=== PATIENT | male | born 1950 | race Caucasian/White ===

== ENCOUNTER 2022-03-04 14:15 | Outpatient (RCR) | payer MEDICARE, OTHER, SELFPAY ==
--- NOTE | 2022-01-25 20:46 | PT.OIE ---
Current Diagnoses Parkinson's disease (01/25/22) Other abnormalities of gait and mobility (01/25/22) History of falling (01/25/22) Visit Care Team Role Provider Type Jean Diaz MD Family Provider Non-Staff Primary Care Provider Specialty: Medical Address: [address], [place], [address] Email: Konstantin Cavanaugh MD Attending Provider Non-Staff Referring Provider Specialty: Neurology Address: [address] , [place], [address] Email: Physical Therapy Initial Evaluation PT-OP-A Visit Information Start: 01/23/22 21:26 Freq: Status: Active Protocol: Document 01/25/22 12:40 AMB (Rec: 01/25/22 12:41 AMB [id number]) Out-Patient Physical Therapy Visit Information Visit Information Visit Type Initial Evaluation Visit Start Time 11:00 Visit Stop Time 12:00 Total Visit Minutes 60 Visit Number 1 PT-OP-B Current Condition Start: 01/23/22 21:26 Freq: Status: Active Protocol: Document 01/25/22 12:40 AMB (Rec: 01/25/22 13:01 AMB [id number]) Current Condition History of Current Condition Onset Date 1 year Current Complaints PD History of Current Condition Steve presents with Parkinson's for at least one year. His PCP noticed facial masking and then started him on levodopa/ carbidopa and it really helped his walking. He walks 3 miles/day with trekking poles but notes the 3rd mile is really bad with shuffling. Before taking medication he would fall when turning his head while walking and continues to be challenged by this but it is much better than it was. 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 Steve feels like exertion makes his PD symptoms worse as far as the tremor and ability to do fine motor activities. 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 Reports 3 falls in the last 2 months, mostly when on his walks. Wants to maintain his walking as it is very helpful for maintaining his blood sugars. Personal Factors Other Personal Factors That May Effect Peripheral neuropathy of Therapy/Recovery bilateral feet and hands, post concussive syndrome, neck pain, Hx pancreatitits, HepC, colon cancer PT-OP-D Balance Start: 01/23/22 21:26 Freq: Status: Active Protocol: Document 01/25/22 12:40 AMB (Rec: 01/25/22 12:54 AMB [id number]) Balance Tests mCTSIB mCTSIB Position 1 30 seconds but close SBA increased ankle sway mCTSIB Position 2 unsafe- CGA to prevent LOB PT-OP-E Functional Tests Start: 01/23/22 21:26 Freq: Status: Active Protocol: Document 01/25/22 12:40 AMB (Rec: 01/25/22 12:54 AMB [id number]) Functional Tests 6 Minute Walk Test Distance 910 Device Used none Comments reduced arm swing on R, flat foot contact bilat 10 Meter Walk Test Distance 11 seconds Device Used none Dynamic Gait Index (DGI) Score 12 DGI Impairment Rating 40 to <60% Impaired (Score 10- 14) Five Times Sit to Stand Test Score 26 Comments mild use of UEs, standard height chair, poor eccentric control PT-OP-G Mobility & Gait Start: 01/23/22 21:26 Freq: Status: Active Protocol: Document 01/25/22 12:40 AMB (Rec: 01/25/22 12:54 AMB [id number]) OP Gait Assessment Comments Gait Comments Flat foot strike with reduced arm swing bilaterally worst on the right. Falls forward with looking down. Able to turn without significant festination but does have smaller steps with turns. PT-OP-H Neuro Start: 01/23/22 21:26 Freq: Status: Active Protocol: Document 01/25/22 12:40 AMB (Rec: 01/25/22 12:54 AMB [id number]) Sensation Evaluation Comments Summary Comments neuropathy for years, numbness in bilateral feet up to ankles, numbness in hands Coordination Evaluation Lower Extremity Tests Left Foot Tapping Test Moderate Impairment Comments Coordination Comments taps feet well at slow speed, unable to alternate at higher speeds PT-OP-T Assessment and Plan Start: 01/23/22 21:26 Freq: Status: Active Protocol: Document 01/25/22 12:40 AMB (Rec: 01/25/22 13:01 AMB [id number]) Physical Therapy Assessment Rehab Potential Rehabilitation Potential Good Evaluation Complexity Number of Personal Factors/Comorbidities 1-2 Number of Body Systems Impaired 4 or More Clinical Presentation at Evaluation Evolving Impairments Impairments Activity Tolerance,Balance, Coordination,Functional Activities,Gait,Pain,Posture, Sensation,Transfers Goals Three Impairment Transfers Short Term Goal (STG) Steve will improve his 5x sit to stand to less than 20 seconds . STG Duration 2 weeks Two Impairment Balance Short Term Goal (STG) Steve will show improved dynamic balance by increasing his DGI score to at least 19/24. STG Duration 2 weeks Half-Way Goal (LTG) Steve will show improved dynamic balance by walking through a cross walk while turning his head to look for traffic without loss of balance. LTG Duration 4 weeks One Impairment Gait Short Term Goal (STG) Steve will ambulate with good step length and arm swing for 1 minute over smooth terrain. STG Duration 2 weeks Charge Master Coordinator Goal (LTG) Steve will show improved gait by improving his 6 minute walk test to at least 1,200 feet. LTG Duration 4 weeks Assessment Summary Assessment Steve attends physical therapy with fine motor and gait impairments and history of falling consistent with Parkinson's Disease. His medical status is complicated by a history of neuropathy and post concussive syndrome with dizziness. He presents with DGI score in the fall risk category and 6MWT of about half the distance for age/ gender norm. He had impaired static balance and coordination, and his gait does fatigue so that he has reduced arm swing and more of a flat foot contact as he walks more. He will benefit from physical therapy with LSVT BIG to improve his gait, transfers and fine motor activities and reduce his overall fall risk. Physical Therapy Plan Frequency and Duration Frequency of Treatment 4x/Week Duration of Treatment 5 weeks Plan of Care Start Date 01/25/22 Plan of Care End Date 03/01/22 Therapeutic Interventions Therapeutic Interventions Balance Training,Coordination Training,Gait Training,Home Exercise Program,Neuromuscular Re-education,Self-Care/Home Management,Therapeutic Activities,Therapeutic Exercises Next Visit Focus/Plan Next Note Type Treatment Note Next Visit Plan Begin standard LSVT BIG, may need to adapt for balance deficits especially with head turns. Give pt functional activities chart.
--- NOTE | 2022-01-25 20:48 | PT.OPPOC ---
Physical, Occupational & Speech Therapy At [facility] Current Diagnoses Parkinson's disease (01/25/22) Other abnormalities of gait and mobility (01/25/22) History of falling (01/25/22) Visit Care Team Role Provider Type Jean Diaz MD Family Provider Non-Staff Primary Care Provider Specialty: Medical Address: [address] [place], [address] Email: Konstantin Cavanaugh MD Attending Provider Non-Staff Referring Provider Specialty: Neurology Address: [address] [facility], [place], [address] Email: Plan Of Care PT-OP-T Assessment and Plan Start: 01/23/22 21:26 Freq: Status: Active Protocol: Document 01/25/22 12:40 AMB (Rec: 01/25/22 13:01 AMB [id number]) Physical Therapy Assessment Rehab Potential Rehabilitation Potential Good Evaluation Complexity Number of Personal Factors/Comorbidities 1-2 Number of Body Systems Impaired 4 or More Clinical Presentation at Evaluation Evolving Impairments Impairments Activity Tolerance,Balance, Coordination,Functional Activities,Gait,Pain,Posture, Sensation,Transfers Goals Three Impairment Transfers Short Term Goal (STG) Steve will improve his 5x sit to stand to less than 20 seconds . STG Duration 2 weeks Two Impairment Balance Short Term Goal (STG) Steve will show improved dynamic balance by increasing his DGI score to at least 19/24. STG Duration 2 weeks Stock Tracer Goal (LTG) Steve will show improved dynamic balance by walking through a cross walk while turning his head to look for traffic without loss of balance. LTG Duration 4 weeks One Impairment Gait Short Term Goal (STG) Steve will ambulate with good step length and arm swing for 1 minute over smooth terrain. STG Duration 2 weeks Stock Tracer Goal (LTG) Steve will show improved gait by improving his 6 minute walk test to at least 1,200 feet. LTG Duration 4 weeks Assessment Summary Assessment Steve attends physical therapy with fine motor and gait impairments and history of falling consistent with Parkinson's Disease. His medical status is complicated by a history of neuropathy and post concussive syndrome with dizziness. He presents with DGI score in the fall risk category and 6MWT of about half the distance for age/ gender norm. He had impaired static balance and coordination, and his gait does fatigue so that he has reduced arm swing and more of a flat foot contact as he walks more. He will benefit from physical therapy with LSVT BIG to improve his gait, transfers and fine motor activities and reduce his overall fall risk. Physical Therapy Plan Frequency and Duration Frequency of Treatment 4x/Week Duration of Treatment 5 weeks Plan of Care Start Date 01/25/22 Plan of Care End Date 03/01/22 Therapeutic Interventions Therapeutic Interventions Balance Training,Coordination Training,Gait Training,Home Exercise Program,Neuromuscular Re-education,Self-Care/Home Management,Therapeutic Activities,Therapeutic Exercises Next Visit Focus/Plan Next Note Type Treatment Note Next Visit Plan Begin standard LSVT BIG, may need to adapt for balance deficits especially with head turns. Give pt functional activities chart. Plan of Care Dates Plan of Care Start Date 01/25/22 Plan of Care End Date 03/01/22 Electronically Signed by: Mohini Baptiste, PT 01/25/222047 If you are in agreement with this Plan of Care, please return a signed and dated copy. I have reviewed this Plan of Care and certify that the skilled therapy services above are required to meet the patient?s needs. Physician Signature Date Printed Name and Credentials Clinical Instructor Signature Printed Name and Credentials
--- NOTE | 2022-01-26 17:23 | PT.OTN ---
Current Diagnoses Parkinson's disease (01/26/22) Other abnormalities of gait and mobility (01/26/22) History of falling (01/26/22) Physical Therapy Treatment Note PT-OP-A Visit Information Start: 01/23/22 21:26 Freq: Status: Active Protocol: Document 01/26/22 13:53 AW (Rec: 01/26/22 17:23 AW [id number]) Out-Patient Physical Therapy Visit Information Visit Information Visit Type Treatment Note Visit Start Time 14:15 Visit Stop Time 15:15 Total Visit Minutes 60 Visit Number 2 PT-OP-B Current Condition Start: 01/23/22 21:26 Freq: Status: Active Protocol: Document 01/25/22 12:40 AMB (Rec: 01/25/22 13:01 AMB [id number]) Current Condition History of Current Condition Onset Date 1 year Current Complaints PD History of Current Condition Steve presents with Parkinson's for at least one year. His PCP noticed facial masking and then started him on levodopa/ carbidopa and it really helped his walking. He walks 3 miles/day with trekking poles but notes the 3rd mile is really bad with shuffling. Before taking medication he would fall when turning his head while walking and continues to be challenged by this but it is much better than it was. 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 Steve feels like exertion makes his PD symptoms worse as far as the tremor and ability to do fine motor activities. 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 Reports 3 falls in the last 2 months, mostly when on his walks. Wants to maintain his walking as it is very helpful for maintaining his blood sugars. Personal Factors Other Personal Factors That May Effect Peripheral neuropathy of Therapy/Recovery bilateral feet and hands, post concussive syndrome, neck pain, Hx pancreatitits, HepC, colon cancer PT-OP-C Subjective Start: 01/23/22 21:26 Freq: Status: Active Protocol: Document 01/26/22 13:53 AW (Rec: 01/26/22 17:23 AW [id number]) OP-PT Subjective Patient Comments Patient Comments Steve arrived today after completing a 3-4 mile walk. PT-OP-D Balance Start: 01/23/22 21:26 Freq: Status: Active Protocol: Document 01/25/22 12:40 AMB (Rec: 01/25/22 12:54 AMB [id number]) Balance Tests mCTSIB mCTSIB Position 1 30 seconds but close SBA increased ankle sway mCTSIB Position 2 unsafe- CGA to prevent LOB PT-OP-E Functional Tests Start: 01/23/22 21:26 Freq: Status: Active Protocol: Document 01/25/22 12:40 AMB (Rec: 01/25/22 12:54 AMB [id number]) Functional Tests 6 Minute Walk Test Distance 910 Device Used none Comments reduced arm swing on R, flat foot contact bilat 10 Meter Walk Test Distance 11 seconds Device Used none Dynamic Gait Index (DGI) Score 12 DGI Impairment Rating 40 to <60% Impaired (Score 10- 14) Five Times Sit to Stand Test Score 26 Comments mild use of UEs, standard height chair, poor eccentric control PT-OP-G Mobility & Gait Start: 01/23/22 21:26 Freq: Status: Active Protocol: Document 01/25/22 12:40 AMB (Rec: 01/25/22 12:54 AMB [id number]) OP Gait Assessment Comments Gait Comments Flat foot strike with reduced arm swing bilaterally worst on the right. Falls forward with looking down. Able to turn without significant festination but does have smaller steps with turns. PT-OP-H Neuro Start: 01/23/22 21:26 Freq: Status: Active Protocol: Document 01/25/22 12:40 AMB (Rec: 01/25/22 12:54 AMB [id number]) Sensation Evaluation Comments Summary Comments neuropathy for years, numbness in bilateral feet up to ankles, numbness in hands Coordination Evaluation Lower Extremity Tests Left Foot Tapping Test Moderate Impairment Comments Coordination Comments taps feet well at slow speed, unable to alternate at higher speeds PT-OP-Q Treatments Start: 01/23/22 21:26 Freq: Status: Active Protocol: Document 01/26/22 13:53 AW (Rec: 01/26/22 17:23 AW [id number]) Neuro Re-Education Treatment Other Activities sit to stand Details sit to stand Reps/Duration 2x5 reps Comments Cues for anterior weight shift with descent. sideways rock and reach Details sideways rock and reach Reps/Duration x10 Comments Modified with rail support forward rock and reach Details forward rock and reach Reps/Duration x10 Comments Modified with rail support. Cues for posture, decreased forward lean. backward step Details backward step Reps/Duration x10 Comments Modified with rail support. Improved performance after doing rock and reach exercises to emphasize weight shift. sideways step Details sideways step Reps/Duration x8 Comments with rail nearby for prn support but rail was not contacted forward step Details forward step Reps/Duration x8 Comments with rail nearby for prn support but rail was not contacted seated side to side Details seated side to side Reps/Duration x10 floor to ceiling Details floor to ceiling Reps/Duration x10 Self-Care/Home Management Treatment Education Other Education Began identifying functional tasks for treatment. Pt would like to work on handwriting, mousing, and using a knife for eating. He may also be interested in practicing tapping accuracy with his phone. PT-OP-T Assessment and Plan Start: 01/23/22 21:26 Freq: Status: Active Protocol: Document 01/26/22 13:53 AW (Rec: 01/26/22 17:23 AW [id number]) Physical Therapy Assessment Goals Three Impairment Transfers Short Term Goal (STG) Steve will improve his 5x sit to stand to less than 20 seconds . STG Duration 2 weeks Two Impairment Balance Short Term Goal (STG) Steve will show improved dynamic balance by increasing his DGI score to at least 19/24. STG Duration 2 weeks Halfway Goal (LTG) Steve will show improved dynamic balance by walking through a cross walk while turning his head to look for traffic without loss of balance. LTG Duration 4 weeks One Impairment Gait Short Term Goal (STG) Steve will ambulate with good step length and arm swing for 1 minute over smooth terrain. STG Duration 2 weeks Halfway Goal (LTG) Steve will show improved gait by improving his 6 minute walk test to at least 1,200 feet. LTG Duration 4 weeks Assessment Summary Assessment Treatment today focused on introducing the daily maximal exercises with education and emphasis on amplitude. Steve needed max cues and lots of repetition for weight shifting during exercise. Modified exercises with rail support were most appropriate for Steve due to balance concerns. Physical Therapy Plan Frequency and Duration Frequency of Treatment 4x/Week Duration of Treatment 5 weeks Plan of Care Start Date 01/25/22 Plan of Care End Date 03/01/22 Therapeutic Interventions Therapeutic Interventions Balance Training,Coordination Training,Gait Training,Home Exercise Program,Neuromuscular Re-education,Self-Care/Home Management,Therapeutic Activities,Therapeutic Exercises Next Visit Focus/Plan Next Note Type Treatment Note Next Visit Plan Review daily exercises and functional tasks. Begin gait training
--- NOTE | 2022-01-27 12:20 | PT.OTN ---
Current Diagnoses Parkinson's disease (01/27/22) Other abnormalities of gait and mobility (01/27/22) History of falling (01/27/22) Physical Therapy Treatment Note PT-OP-A Visit Information Start: 01/23/22 21:26 Freq: Status: Active Protocol: Document 01/27/22 11:00 AMB (Rec: 01/27/22 11:55 AMB [id number]) Out-Patient Physical Therapy Visit Information Visit Information Visit Type Treatment Note Visit Start Time 11:00 Visit Stop Time 12:00 Total Visit Minutes 60 Visit Number 3 PT-OP-B Current Condition Start: 01/23/22 21:26 Freq: Status: Active Protocol: Document 01/25/22 12:40 AMB (Rec: 01/25/22 13:01 AMB [id number]) Current Condition History of Current Condition Onset Date 1 year Current Complaints PD History of Current Condition Steve presents with Parkinson's for at least one year. His PCP noticed facial masking and then started him on levodopa/ carbidopa and it really helped his walking. He walks 3 miles/day with trekking poles but notes the 3rd mile is really bad with shuffling. Before taking medication he would fall when turning his head while walking and continues to be challenged by this but it is much better than it was. 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 Steve feels like exertion makes his PD symptoms worse as far as the tremor and ability to do fine motor activities. 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 Reports 3 falls in the last 2 months, mostly when on his walks. Wants to maintain his walking as it is very helpful for maintaining his blood sugars. Personal Factors Other Personal Factors That May Effect Peripheral neuropathy of Therapy/Recovery bilateral feet and hands, post concussive syndrome, neck pain, Hx pancreatitits, HepC, colon cancer PT-OP-C Subjective Start: 01/23/22 21:26 Freq: Status: Active Protocol: Document 01/27/22 11:00 AMB (Rec: 01/27/22 12:05 AMB [id number]) OP-PT Subjective Patient Comments Patient Comments Pt did his exercises last night and they went ok, having difficulty knowing which leg to put weight on. PT-OP-D Balance Start: 01/23/22 21:26 Freq: Status: Active Protocol: Document 01/25/22 12:40 AMB (Rec: 01/25/22 12:54 AMB [id number]) Balance Tests mCTSIB mCTSIB Position 1 30 seconds but close SBA increased ankle sway mCTSIB Position 2 unsafe- CGA to prevent LOB PT-OP-E Functional Tests Start: 01/23/22 21:26 Freq: Status: Active Protocol: Document 01/25/22 12:40 AMB (Rec: 01/25/22 12:54 AMB [id number]) Functional Tests 6 Minute Walk Test Distance 910 Device Used none Comments reduced arm swing on R, flat foot contact bilat 10 Meter Walk Test Distance 11 seconds Device Used none Dynamic Gait Index (DGI) Score 12 DGI Impairment Rating 40 to <60% Impaired (Score 10- 14) Five Times Sit to Stand Test Score 26 Comments mild use of UEs, standard height chair, poor eccentric control PT-OP-G Mobility & Gait Start: 01/23/22 21:26 Freq: Status: Active Protocol: Document 01/25/22 12:40 AMB (Rec: 01/25/22 12:54 AMB [id number]) OP Gait Assessment Comments Gait Comments Flat foot strike with reduced arm swing bilaterally worst on the right. Falls forward with looking down. Able to turn without significant festination but does have smaller steps with turns. PT-OP-H Neuro Start: 01/23/22 21:26 Freq: Status: Active Protocol: Document 01/25/22 12:40 AMB (Rec: 01/25/22 12:54 AMB [id number]) Sensation Evaluation Comments Summary Comments neuropathy for years, numbness in bilateral feet up to ankles, numbness in hands Coordination Evaluation Lower Extremity Tests Left Foot Tapping Test Moderate Impairment Comments Coordination Comments taps feet well at slow speed, unable to alternate at higher speeds PT-OP-Q Treatments Start: 01/23/22 21:26 Freq: Status: Active Protocol: Document 01/27/22 11:00 AMB (Rec: 01/27/22 11:55 AMB [id number]) Gait Training Gait Activity outdoor Device Used none Level of Assistance SBA Surface pavement, curbs, slight hills Distance/Duration 400' Treatment Focus arm swing/step length Neuro Re-Education Treatment Other Activities sit to stand Details sit to stand Reps/Duration 2x5 reps Comments Cues for anterior weight shift with descent. sideways rock and reach Details sideways rock and reach Reps/Duration x10 Comments Railing available, but not touched forward rock and reach Details forward rock and reach Reps/Duration x10 Comments Modified with rail support. Cues for posture, decreased forward lean. backward step Details backward step Reps/Duration x10 Comments Modified with rail support. sideways step Details sideways step Reps/Duration x8 Comments with rail nearby for prn support but rail was not contacted forward step Details forward step Reps/Duration x8 Comments with rail nearby for prn support but rail was not contacted seated side to side Details seated side to side Reps/Duration x10 floor to ceiling Details floor to ceiling Reps/Duration x10 PT-OP-T Assessment and Plan Start: 01/23/22 21:26 Freq: Status: Active Protocol: Document 01/27/22 11:00 AMB (Rec: 01/27/22 11:55 AMB [id number]) Physical Therapy Assessment Goals Three Impairment Transfers Short Term Goal (STG) Steve will improve his 5x sit to stand to less than 20 seconds . STG Duration 2 weeks Two Impairment Balance Short Term Goal (STG) Steve will show improved dynamic balance by increasing his DGI score to at least 19/24. STG Duration 2 weeks Half-Way Goal (LTG) Steve will show improved dynamic balance by walking through a cross walk while turning his head to look for traffic without loss of balance. LTG Duration 4 weeks One Impairment Gait Short Term Goal (STG) Steve will ambulate with good step length and arm swing for 1 minute over smooth terrain. STG Duration 2 weeks Half-Way Goal (LTG) Steve will show improved gait by improving his 6 minute walk test to at least 1,200 feet. LTG Duration 4 weeks Assessment Summary Assessment Steve is needing UE support for backward stepping and fwd rock and reach, did better today as he hadn't just been on a long walk and neuropathy burning was more in his feet than up into his calves. Physical Therapy Plan Frequency and Duration Frequency of Treatment 4x/Week Duration of Treatment 5 weeks Plan of Care Start Date 01/25/22 Plan of Care End Date 03/01/22 Therapeutic Interventions Therapeutic Interventions Balance Training,Coordination Training,Gait Training,Home Exercise Program,Neuromuscular Re-education,Self-Care/Home Management,Therapeutic Activities,Therapeutic Exercises Next Visit Focus/Plan Next Note Type Treatment Note Next Visit Plan Review daily exercises and functional tasks. Begin gait training
--- NOTE | 2022-01-28 15:25 | PT.OTN ---
Current Diagnoses Parkinson's disease (01/28/22) Other abnormalities of gait and mobility (01/28/22) History of falling (01/28/22) Physical Therapy Treatment Note PT-OP-A Visit Information Start: 01/23/22 21:26 Freq: Status: Active Protocol: Document 01/28/22 13:58 AW (Rec: 01/28/22 15:17 AW [id number]) Out-Patient Physical Therapy Visit Information Visit Information Visit Type Treatment Note Visit Start Time 14:15 Visit Stop Time 15:15 Total Visit Minutes 60 Visit Number 4 PT-OP-B Current Condition Start: 01/23/22 21:26 Freq: Status: Active Protocol: Document 01/25/22 12:40 AMB (Rec: 01/25/22 13:01 AMB [id number]) Current Condition History of Current Condition Onset Date 1 year Current Complaints PD History of Current Condition Steve presents with Parkinson's for at least one year. His PCP noticed facial masking and then started him on levodopa/ carbidopa and it really helped his walking. He walks 3 miles/day with trekking poles but notes the 3rd mile is really bad with shuffling. Before taking medication he would fall when turning his head while walking and continues to be challenged by this but it is much better than it was. 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 Steve feels like exertion makes his PD symptoms worse as far as the tremor and ability to do fine motor activities. 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 Reports 3 falls in the last 2 months, mostly when on his walks. Wants to maintain his walking as it is very helpful for maintaining his blood sugars. Personal Factors Other Personal Factors That May Effect Peripheral neuropathy of Therapy/Recovery bilateral feet and hands, post concussive syndrome, neck pain, Hx pancreatitits, HepC, colon cancer PT-OP-C Subjective Start: 01/23/22 21:26 Freq: Status: Active Protocol: Document 01/28/22 13:58 AW (Rec: 01/28/22 15:17 AW [id number]) OP-PT Subjective Patient Comments Patient Comments Steve tried some of his standing exercises without UE support at home and agreed that he has better movement with support. He did his 4-mile walk before PT today. PT-OP-D Balance Start: 01/23/22 21:26 Freq: Status: Active Protocol: Document 01/25/22 12:40 AMB (Rec: 01/25/22 12:54 AMB [id number]) Balance Tests mCTSIB mCTSIB Position 1 30 seconds but close SBA increased ankle sway mCTSIB Position 2 unsafe- CGA to prevent LOB PT-OP-E Functional Tests Start: 01/23/22 21:26 Freq: Status: Active Protocol: Document 01/25/22 12:40 AMB (Rec: 01/25/22 12:54 AMB [id number]) Functional Tests 6 Minute Walk Test Distance 910 Device Used none Comments reduced arm swing on R, flat foot contact bilat 10 Meter Walk Test Distance 11 seconds Device Used none Dynamic Gait Index (DGI) Score 12 DGI Impairment Rating 40 to <60% Impaired (Score 10- 14) Five Times Sit to Stand Test Score 26 Comments mild use of UEs, standard height chair, poor eccentric control PT-OP-G Mobility & Gait Start: 01/23/22 21:26 Freq: Status: Active Protocol: Document 01/25/22 12:40 AMB (Rec: 01/25/22 12:54 AMB [id number]) OP Gait Assessment Comments Gait Comments Flat foot strike with reduced arm swing bilaterally worst on the right. Falls forward with looking down. Able to turn without significant festination but does have smaller steps with turns. PT-OP-H Neuro Start: 01/23/22 21:26 Freq: Status: Active Protocol: Document 01/25/22 12:40 AMB (Rec: 01/25/22 12:54 AMB [id number]) Sensation Evaluation Comments Summary Comments neuropathy for years, numbness in bilateral feet up to ankles, numbness in hands Coordination Evaluation Lower Extremity Tests Left Foot Tapping Test Moderate Impairment Comments Coordination Comments taps feet well at slow speed, unable to alternate at higher speeds PT-OP-Q Treatments Start: 01/23/22 21:26 Freq: Status: Active Protocol: Document 01/28/22 13:58 AW (Rec: 01/28/22 15:17 AW [id number]) Therapeutic Activity Therapeutic Activity mousing Name mousing Comments Briefly assessed. Pt states main problem is erratic finger movement which creates unintended clicks. writing Name handwriting Comments Pt wrote his name on large- ruled paper with mild evidence of micrographia. He responded well to cues for hand flicks and big insurance account manager on the pen. Gait Training Gait Activity outdoor Device Used none, single trekking pole Level of Assistance SBA Surface pavement, curbs, slight grassy hills Distance/Duration 15 min Treatment Focus arm swing/step length Comments 1/2 of time without AD, remaining time with trek pole. Neuro Re-Education Treatment Other Activities sit to stand Details sit to stand Reps/Duration 2x5 reps Comments 19 height black tx table with improved eccentric control today sideways rock and reach Details sideways rock and reach Reps/Duration x10 Comments Railing available, but not touched forward rock and reach Details forward rock and reach Reps/Duration x10 Comments Modified with rail support. Cues for posture, decreased forward lean. backward step Details backward step Reps/Duration x10 Comments Modified with rail support. sideways step Details sideways step Reps/Duration x8 Comments with rail nearby for prn support but rail was not contacted forward step Details forward step Reps/Duration x8 Comments with rail nearby for prn support but rail was not contacted seated side to side Details seated side to side Reps/Duration x10 floor to ceiling Details floor to ceiling Reps/Duration x10 PT-OP-T Assessment and Plan Start: 01/23/22 21:26 Freq: Status: Active Protocol: Document 01/28/22 13:58 AW (Rec: 01/28/22 15:17 AW [id number]) Physical Therapy Assessment Goals Three Impairment Transfers Short Term Goal (STG) Steve will improve his 5x sit to stand to less than 20 seconds . STG Duration 2 weeks Two Impairment Balance Short Term Goal (STG) Steve will show improved dynamic balance by increasing his DGI score to at least 19/24. STG Duration 2 weeks Card Grader Goal (LTG) Steve will show improved dynamic balance by walking through a cross walk while turning his head to look for traffic without loss of balance. LTG Duration 4 weeks One Impairment Gait Short Term Goal (STG) Steve will ambulate with good step length and arm swing for 1 minute over smooth terrain. STG Duration 2 weeks Card Grader Goal (LTG) Steve will show improved gait by improving his 6 minute walk test to at least 1,200 feet. LTG Duration 4 weeks Assessment Summary Assessment Steve is showing improvement in balance with standing exercises but still benefits from UE support with backward step and forward rock/reach to improve amplitude. He did respond well to cues for handwriting using flicks and strong insurance account manager. Physical Therapy Plan Frequency and Duration Frequency of Treatment 4x/Week Duration of Treatment 5 weeks Plan of Care Start Date 01/25/22 Plan of Care End Date 03/01/22 Therapeutic Interventions Therapeutic Interventions Balance Training,Coordination Training,Gait Training,Home Exercise Program,Neuromuscular Re-education,Self-Care/Home Management,Therapeutic Activities,Therapeutic Exercises Next Visit Focus/Plan Next Note Type Treatment Note Next Visit Plan Review daily exercises and functional tasks. Begin gait training
--- NOTE | 2022-02-01 12:57 | PT.OTN ---
Current Diagnoses Parkinson's disease (02/01/22) Other abnormalities of gait and mobility (02/01/22) History of falling (02/01/22) Physical Therapy Treatment Note PT-OP-A Visit Information Start: 01/23/22 21:26 Freq: Status: Active Protocol: Document 02/01/22 11:03 AMB (Rec: 02/01/22 12:03 AMB [id number]) Out-Patient Physical Therapy Visit Information Visit Information Visit Type Treatment Note Visit Start Time 11:00 Visit Stop Time 12:00 Total Visit Minutes 60 Visit Number 5 PT-OP-B Current Condition Start: 01/23/22 21:26 Freq: Status: Active Protocol: Document 01/25/22 12:40 AMB (Rec: 01/25/22 13:01 AMB [id number]) Current Condition History of Current Condition Onset Date 1 year Current Complaints PD History of Current Condition Steve presents with Parkinson's for at least one year. His PCP noticed facial masking and then started him on levodopa/ carbidopa and it really helped his walking. He walks 3 miles/day with trekking poles but notes the 3rd mile is really bad with shuffling. Before taking medication he would fall when turning his head while walking and continues to be challenged by this but it is much better than it was. 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 Steve feels like exertion makes his PD symptoms worse as far as the tremor and ability to do fine motor activities. 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 Reports 3 falls in the last 2 months, mostly when on his walks. Wants to maintain his walking as it is very helpful for maintaining his blood sugars. Personal Factors Other Personal Factors That May Effect Peripheral neuropathy of Therapy/Recovery bilateral feet and hands, post concussive syndrome, neck pain, Hx pancreatitits, HepC, colon cancer PT-OP-C Subjective Start: 01/23/22 21:26 Freq: Status: Active Protocol: Document 02/01/22 11:03 AMB (Rec: 02/01/22 12:03 AMB [id number]) OP-PT Subjective Patient Comments Patient Comments Pt reports a lot of fatigue on . Nothing on Tuesday, was able to do one set of exercises on Tuesday. Does report new onset dizziness with PT-OP-D Balance Start: 01/23/22 21:26 Freq: Status: Active Protocol: Document 01/25/22 12:40 AMB (Rec: 01/25/22 12:54 AMB [id number]) Balance Tests mCTSIB mCTSIB Position 1 30 seconds but close SBA increased ankle sway mCTSIB Position 2 unsafe- CGA to prevent LOB PT-OP-E Functional Tests Start: 01/23/22 21:26 Freq: Status: Active Protocol: Document 01/25/22 12:40 AMB (Rec: 01/25/22 12:54 AMB [id number]) Functional Tests 6 Minute Walk Test Distance 910 Device Used none Comments reduced arm swing on R, flat foot contact bilat 10 Meter Walk Test Distance 11 seconds Device Used none Dynamic Gait Index (DGI) Score 12 DGI Impairment Rating 40 to <60% Impaired (Score 10- 14) Five Times Sit to Stand Test Score 26 Comments mild use of UEs, standard height chair, poor eccentric control PT-OP-G Mobility & Gait Start: 01/23/22 21:26 Freq: Status: Active Protocol: Document 01/25/22 12:40 AMB (Rec: 01/25/22 12:54 AMB [id number]) OP Gait Assessment Comments Gait Comments Flat foot strike with reduced arm swing bilaterally worst on the right. Falls forward with looking down. Able to turn without significant festination but does have smaller steps with turns. PT-OP-H Neuro Start: 01/23/22 21:26 Freq: Status: Active Protocol: Document 01/25/22 12:40 AMB (Rec: 01/25/22 12:54 AMB [id number]) Sensation Evaluation Comments Summary Comments neuropathy for years, numbness in bilateral feet up to ankles, numbness in hands Coordination Evaluation Lower Extremity Tests Left Foot Tapping Test Moderate Impairment Comments Coordination Comments taps feet well at slow speed, unable to alternate at higher speeds PT-OP-Q Treatments Start: 01/23/22 21:26 Freq: Status: Active Protocol: Document 02/01/22 11:03 AMB (Rec: 02/01/22 12:03 AMB [id number]) Neuro Re-Education Treatment Other Activities sit to stand Details sit to stand Reps/Duration 2x5 reps Comments 19 height black tx table with improved eccentric control today sideways rock and reach Details sideways rock and reach Reps/Duration x10 Comments Railing available, but not touched forward rock and reach Details forward rock and reach Reps/Duration x10 Comments Modified with rail support. Cues for posture, decreased forward lean. backward step Details backward step Reps/Duration x10 Comments Modified with rail support. sideways step Details sideways step Reps/Duration x8 Comments with rail nearby for prn support but rail was not contacted forward step Details forward step Reps/Duration x8 Comments with rail nearby for prn support but rail was not contacted seated side to side Details seated side to side Reps/Duration x10 floor to ceiling Details floor to ceiling Reps/Duration x10 Canalithic Repositioning BPPV Treatment [place] Affected Canal(s) R Reps 2 Comments Pt with torsional upbeating nystagmus with R [place]-hallpike, tolerated 2 [place] well, but on second did see nystagmus in second position, and will want to reassess L [place] at next visit. Pt given post manuever precautions and specifically told not to do seated floor to ceiling or backwards stepping at home tonight, can return to these exercises tomorrow assuming balance is stable. PT-OP-T Assessment and Plan Start: 01/23/22 21:26 Freq: Status: Active Protocol: Document 02/01/22 12:56 AMB (Rec: 02/01/22 12:57 AMB [id number]) Physical Therapy Assessment Assessment Summary Assessment Pt was assessed for BPPV and at least has R posterior canal BPPV, and will be checked for L in 2 visits. This was addressed as BPPV would put him at increased risk of falling and considering his fall history, this needs to be dealt with soon. He should be able to continue with BIG exercises as normal at the next session. Physical Therapy Plan Next Visit Focus/Plan Next Note Type Treatment Note Next Visit Plan Review daily exercises and functional tasks. Begin gait training
--- NOTE | 2022-02-03 15:45 | PT.OTN ---
Current Diagnoses Parkinson's disease (02/03/22) Other abnormalities of gait and mobility (02/03/22) History of falling (02/03/22) Physical Therapy Treatment Note PT-OP-A Visit Information Start: 01/23/22 21:26 Freq: Status: Active Protocol: Document 02/03/22 11:01 AMB (Rec: 02/03/22 12:12 AMB [id number]) Out-Patient Physical Therapy Visit Information Visit Information Visit Type Treatment Note Visit Start Time 11:00 Visit Stop Time 12:00 Total Visit Minutes 60 Visit Number 6 PT-OP-B Current Condition Start: 01/23/22 21:26 Freq: Status: Active Protocol: Document 01/25/22 12:40 AMB (Rec: 01/25/22 13:01 AMB [id number]) Current Condition History of Current Condition Onset Date 1 year Current Complaints PD History of Current Condition Steve presents with Parkinson's for at least one year. His PCP noticed facial masking and then started him on levodopa/ carbidopa and it really helped his walking. He walks 3 miles/day with trekking poles but notes the 3rd mile is really bad with shuffling. Before taking medication he would fall when turning his head while walking and continues to be challenged by this but it is much better than it was. 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 Steve feels like exertion makes his PD symptoms worse as far as the tremor and ability to do fine motor activities. 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 Reports 3 falls in the last 2 months, mostly when on his walks. Wants to maintain his walking as it is very helpful for maintaining his blood sugars. Personal Factors Other Personal Factors That May Effect Peripheral neuropathy of Therapy/Recovery bilateral feet and hands, post concussive syndrome, neck pain, Hx pancreatitits, HepC, colon cancer PT-OP-C Subjective Start: 01/23/22 21:26 Freq: Status: Active Protocol: Document 02/03/22 11:01 AMB (Rec: 02/03/22 12:12 AMB [id number]) OP-PT Subjective Patient Comments Patient Comments WEnt on a walk yesterday. PT-OP-D Balance Start: 01/23/22 21:26 Freq: Status: Active Protocol: Document 01/25/22 12:40 AMB (Rec: 01/25/22 12:54 AMB [id number]) Balance Tests mCTSIB mCTSIB Position 1 30 seconds but close SBA increased ankle sway mCTSIB Position 2 unsafe- CGA to prevent LOB PT-OP-E Functional Tests Start: 01/23/22 21:26 Freq: Status: Active Protocol: Document 01/25/22 12:40 AMB (Rec: 01/25/22 12:54 AMB [id number]) Functional Tests 6 Minute Walk Test Distance 910 Device Used none Comments reduced arm swing on R, flat foot contact bilat 10 Meter Walk Test Distance 11 seconds Device Used none Dynamic Gait Index (DGI) Score 12 DGI Impairment Rating 40 to <60% Impaired (Score 10- 14) Five Times Sit to Stand Test Score 26 Comments mild use of UEs, standard height chair, poor eccentric control PT-OP-G Mobility & Gait Start: 01/23/22 21:26 Freq: Status: Active Protocol: Document 01/25/22 12:40 AMB (Rec: 01/25/22 12:54 AMB [id number]) OP Gait Assessment Comments Gait Comments Flat foot strike with reduced arm swing bilaterally worst on the right. Falls forward with looking down. Able to turn without significant festination but does have smaller steps with turns. PT-OP-H Neuro Start: 01/23/22 21:26 Freq: Status: Active Protocol: Document 01/25/22 12:40 AMB (Rec: 01/25/22 12:54 AMB [id number]) Sensation Evaluation Comments Summary Comments neuropathy for years, numbness in bilateral feet up to ankles, numbness in hands Coordination Evaluation Lower Extremity Tests Left Foot Tapping Test Moderate Impairment Comments Coordination Comments taps feet well at slow speed, unable to alternate at higher speeds PT-OP-Q Treatments Start: 01/23/22 21:26 Freq: Status: Active Protocol: Document 02/03/22 11:01 AMB (Rec: 02/03/22 12:12 AMB [id number]) Gait Training Gait Activity indoor Description dual task, counting back 3's from 100 Device Used none Level of Assistance SBA Surface smooth Distance/Duration 600' Comments decreased step length Neuro Re-Education Treatment Other Activities sit to stand Details sit to stand Reps/Duration 2x5 reps Comments 19 height black tx table with improved eccentric control today sideways rock and reach Details sideways rock and reach Reps/Duration x10 Comments Railing available, but not touched forward rock and reach Details forward rock and reach Reps/Duration x10 Comments Modified with rail support. Cues for posture, decreased forward lean. backward step Details backward step Reps/Duration x10 Comments Modified with rail support. sideways step Details sideways step Reps/Duration x8 Comments with rail nearby for prn support but rail was not contacted forward step Details forward step Reps/Duration x8 Comments with rail nearby for prn support but rail was not contacted seated side to side Details seated side to side Reps/Duration x10 floor to ceiling Details floor to ceiling Reps/Duration x10 Canalithic Repositioning BPPV Treatment Jazmín Affected Canal(s) R Reps 1 Comments Pt with torsional upbeating nystagmus with R [place]-hallpike, tolerated 2 Jazmín well, but on second did see nystagmus in second position, and will want to reassess L DixHallpike at next visit. Pt given post manuever precautions and specifically told not to do seated floor to ceiling or backwards stepping at home tonight, can return to these exercises tomorrow assuming balance is stable. PT-OP-T Assessment and Plan Start: 01/23/22 21:26 Freq: Status: Active Protocol: Document 02/03/22 11:01 AMB (Rec: 02/03/22 12:12 AMB [id number]) Physical Therapy Assessment Goals Three Impairment Transfers Short Term Goal (STG) Steve will improve his 5x sit to stand to less than 20 seconds . STG Duration 2 weeks Two Impairment Balance Short Term Goal (STG) Steve will show improved dynamic balance by increasing his DGI score to at least 19/24. STG Duration 2 weeks Custodial Goal (LTG) Steve will show improved dynamic balance by walking through a cross walk while turning his head to look for traffic without loss of balance. LTG Duration 4 weeks One Impairment Gait Short Term Goal (STG) Steve will ambulate with good step length and arm swing for 1 minute over smooth terrain. STG Duration 2 weeks Custodial Goal (LTG) Steve will show improved gait by improving his 6 minute walk test to at least 1,200 feet. LTG Duration 4 weeks Assessment Summary Assessment Pt with very slight nystagmus with R [place]ace Hallpike, so Jazmín performed again. Will recheck next week. Pt doing well otherwise, did struggle to maintain step length when dual tasking. Physical Therapy Plan Next Visit Focus/Plan Next Note Type Treatment Note Next Visit Plan Review daily exercises and functional tasks. Begin gait training
--- NOTE | 2022-02-04 14:07 | PT.OTN ---
Current Diagnoses Parkinson's disease (02/04/22) Other abnormalities of gait and mobility (02/04/22) History of falling (02/04/22) Physical Therapy Treatment Note PT-OP-A Visit Information Start: 01/23/22 21:26 Freq: Status: Active Protocol: Document 02/04/22 12:18 AW (Rec: 02/04/22 14:05 AW [id number]) Out-Patient Physical Therapy Visit Information Visit Information Visit Type Treatment Note Visit Start Time 13:00 Visit Stop Time 14:00 Total Visit Minutes 60 Visit Number 7 PT-OP-B Current Condition Start: 01/23/22 21:26 Freq: Status: Active Protocol: Document 01/25/22 12:40 AMB (Rec: 01/25/22 13:01 AMB [id number]) Current Condition History of Current Condition Onset Date 1 year Current Complaints PD History of Current Condition Steve presents with Parkinson's for at least one year. His PCP noticed facial masking and then started him on levodopa/ carbidopa and it really helped his walking. He walks 3 miles/day with trekking poles but notes the 3rd mile is really bad with shuffling. Before taking medication he would fall when turning his head while walking and continues to be challenged by this but it is much better than it was. 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 Steve feels like exertion makes his PD symptoms worse as far as the tremor and ability to do fine motor activities. 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 Reports 3 falls in the last 2 months, mostly when on his walks. Wants to maintain his walking as it is very helpful for maintaining his blood sugars. Personal Factors Other Personal Factors That May Effect Peripheral neuropathy of Therapy/Recovery bilateral feet and hands, post concussive syndrome, neck pain, Hx pancreatitits, HepC, colon cancer PT-OP-C Subjective Start: 01/23/22 21:26 Freq: Status: Active Protocol: Document 02/04/22 12:18 AW (Rec: 02/04/22 14:05 AW [id number]) OP-PT Subjective Patient Comments Patient Comments Getting up from the couch today, Steve fell on his right side and landed on the coffee table. Feels like his feet just didn't get to the right place. Denies any room- spinning sensation. PT-OP-D Balance Start: 01/23/22 21:26 Freq: Status: Active Protocol: Document 01/25/22 12:40 AMB (Rec: 01/25/22 12:54 AMB [id number]) Balance Tests mCTSIB mCTSIB Position 1 30 seconds but close SBA increased ankle sway mCTSIB Position 2 unsafe- CGA to prevent LOB PT-OP-E Functional Tests Start: 01/23/22 21:26 Freq: Status: Active Protocol: Document 01/25/22 12:40 AMB (Rec: 01/25/22 12:54 AMB [id number]) Functional Tests 6 Minute Walk Test Distance 910 Device Used none Comments reduced arm swing on R, flat foot contact bilat 10 Meter Walk Test Distance 11 seconds Device Used none Dynamic Gait Index (DGI) Score 12 DGI Impairment Rating 40 to <60% Impaired (Score 10- 14) Five Times Sit to Stand Test Score 26 Comments mild use of UEs, standard height chair, poor eccentric control PT-OP-G Mobility & Gait Start: 01/23/22 21:26 Freq: Status: Active Protocol: Document 01/25/22 12:40 AMB (Rec: 01/25/22 12:54 AMB [id number]) OP Gait Assessment Comments Gait Comments Flat foot strike with reduced arm swing bilaterally worst on the right. Falls forward with looking down. Able to turn without significant festination but does have smaller steps with turns. PT-OP-H Neuro Start: 01/23/22 21:26 Freq: Status: Active Protocol: Document 01/25/22 12:40 AMB (Rec: 01/25/22 12:54 AMB [id number]) Sensation Evaluation Comments Summary Comments neuropathy for years, numbness in bilateral feet up to ankles, numbness in hands Coordination Evaluation Lower Extremity Tests Left Foot Tapping Test Moderate Impairment Comments Coordination Comments taps feet well at slow speed, unable to alternate at higher speeds PT-OP-Q Treatments Start: 01/23/22 21:26 Freq: Status: Active Protocol: Document 02/04/22 12:18 AW (Rec: 02/04/22 14:05 AW [id number]) Therapeutic Activity Therapeutic Activity transfers Name transfers Comments Quick up from chair with immediate turn right or left. Focused on intentional movement, big and controlled steps Gait Training Gait Activity indoor Description dual task, counting back 4's from 99 Device Used none Level of Assistance SBA Surface smooth Distance/Duration 600' Comments decreased step length outdoor Device Used none Level of Assistance SBA Surface pavement, curbs, slight grassy hills, parking lot Treatment Focus arm swing/step length, heelstrike Comments stairs, pavement, curbs, grassy hill, around parking blocks near helipad in figure 8 pattern Neuro Re-Education Treatment Other Activities sit to stand Details sit to stand Reps/Duration 2x5 reps Comments std height chair (mesh). Able to stop for 5 sec pause midway on descent sideways rock and reach Details sideways rock and reach Reps/Duration x10 Comments alternating forward rock and reach Details forward rock and reach Reps/Duration x10 Comments Modified with rail support. Tactile cues for quality weight shift backward step Details backward step Reps/Duration x10 Comments Modified with rail support. Cued foot stomp on return to facilitate improved hip flexion/foot clearance. sideways step Details sideways step Reps/Duration x8 Comments with rail nearby for prn support but rail was not contacted forward step Details forward step Reps/Duration x8 Comments alternating seated side to side Details seated side to side Reps/Duration x10 floor to ceiling Details floor to ceiling PT-OP-T Assessment and Plan Start: 01/23/22 21:26 Freq: Status: Active Protocol: Document 02/04/22 12:18 AW (Rec: 02/04/22 14:05 AW [id number]) Physical Therapy Assessment Goals Three Impairment Transfers Short Term Goal (STG) Steve will improve his 5x sit to stand to less than 20 seconds . STG Duration 2 weeks Two Impairment Balance Short Term Goal (STG) Steve will show improved dynamic balance by increasing his DGI score to at least 19/24. STG Duration 2 weeks Usp Goal (LTG) Steve will show improved dynamic balance by walking through a cross walk while turning his head to look for traffic without loss of balance. LTG Duration 4 weeks One Impairment Gait Short Term Goal (STG) Steve will ambulate with good step length and arm swing for 1 minute over smooth terrain. STG Duration 2 weeks Usp Goal (LTG) Steve will show improved gait by improving his 6 minute walk test to at least 1,200 feet. LTG Duration 4 weeks Assessment Summary Assessment Steve reports a fall this morning. He notes many falls happen when getting up from low, soft couch and quickly turning to right or left. Practiced this movement today with emphasis on situational awareness and intentional, big steps. Continued dual task gait training today and attempted to cue heel/toe pattern. When focusing only on heel/toe, no foot scuffs were observed. Balance in improving in daily exercises and Steve was able to do alternating pattern with forward step and sideways rock /reach. Physical Therapy Plan Next Visit Focus/Plan Next Note Type Treatment Note
--- NOTE | 2022-02-09 17:22 | PT.OTN ---
Current Diagnoses Parkinson's disease (02/09/22) Other abnormalities of gait and mobility (02/09/22) History of falling (02/09/22) Physical Therapy Treatment Note PT-OP-A Visit Information Start: 01/23/22 21:26 Freq: Status: Active Protocol: Document 02/09/22 13:59 AW (Rec: 02/09/22 17:22 AW [id number]) Out-Patient Physical Therapy Visit Information Visit Information Visit Type Treatment Note Visit Start Time 14:15 Visit Stop Time 15:15 Total Visit Minutes 60 Visit Number 8 PT-OP-B Current Condition Start: 01/23/22 21:26 Freq: Status: Active Protocol: Document 01/25/22 12:40 AMB (Rec: 01/25/22 13:01 AMB [id number]) Current Condition History of Current Condition Onset Date 1 year Current Complaints PD History of Current Condition Steve presents with Parkinson's for at least one year. His PCP noticed facial masking and then started him on levodopa/ carbidopa and it really helped his walking. He walks 3 miles/day with trekking poles but notes the 3rd mile is really bad with shuffling. Before taking medication he would fall when turning his head while walking and continues to be challenged by this but it is much better than it was. 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 Steve feels like exertion makes his PD symptoms worse as far as the tremor and ability to do fine motor activities. 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 Reports 3 falls in the last 2 months, mostly when on his walks. Wants to maintain his walking as it is very helpful for maintaining his blood sugars. Personal Factors Other Personal Factors That May Effect Peripheral neuropathy of Therapy/Recovery bilateral feet and hands, post concussive syndrome, neck pain, Hx pancreatitits, HepC, colon cancer PT-OP-C Subjective Start: 01/23/22 21:26 Freq: Status: Active Protocol: Document 02/09/22 13:59 AW (Rec: 02/09/22 17:22 AW [id number]) OP-PT Subjective Patient Comments Patient Comments Steve states he is having a blah day and not feeling very motivated. PT-OP-D Balance Start: 01/23/22 21:26 Freq: Status: Active Protocol: Document 01/25/22 12:40 AMB (Rec: 01/25/22 12:54 AMB [id number]) Balance Tests mCTSIB mCTSIB Position 1 30 seconds but close SBA increased ankle sway mCTSIB Position 2 unsafe- CGA to prevent LOB PT-OP-E Functional Tests Start: 01/23/22 21:26 Freq: Status: Active Protocol: Document 01/25/22 12:40 AMB (Rec: 01/25/22 12:54 AMB [id number]) Functional Tests 6 Minute Walk Test Distance 910 Device Used none Comments reduced arm swing on R, flat foot contact bilat 10 Meter Walk Test Distance 11 seconds Device Used none Dynamic Gait Index (DGI) Score 12 DGI Impairment Rating 40 to <60% Impaired (Score 10- 14) Five Times Sit to Stand Test Score 26 Comments mild use of UEs, standard height chair, poor eccentric control PT-OP-G Mobility & Gait Start: 01/23/22 21:26 Freq: Status: Active Protocol: Document 01/25/22 12:40 AMB (Rec: 01/25/22 12:54 AMB [id number]) OP Gait Assessment Comments Gait Comments Flat foot strike with reduced arm swing bilaterally worst on the right. Falls forward with looking down. Able to turn without significant festination but does have smaller steps with turns. PT-OP-H Neuro Start: 01/23/22 21:26 Freq: Status: Active Protocol: Document 01/25/22 12:40 AMB (Rec: 01/25/22 12:54 AMB [id number]) Sensation Evaluation Comments Summary Comments neuropathy for years, numbness in bilateral feet up to ankles, numbness in hands Coordination Evaluation Lower Extremity Tests Left Foot Tapping Test Moderate Impairment Comments Coordination Comments taps feet well at slow speed, unable to alternate at higher speeds PT-OP-Q Treatments Start: 01/23/22 21:26 Freq: Status: Active Protocol: Document 02/09/22 13:59 AW (Rec: 02/09/22 17:22 AW [id number]) Therapeutic Activity Therapeutic Activity transfers Name transfers Comments Sit to stand from low, soft armchair with quick movement forward, right, or left on command. writing Name handwriting Comments Assessed pt's ability to write checks. Did not identify any micrographia. Gait Training Gait Activity indoor Description dual task, counting back 4's from 99 Device Used none Level of Assistance SBA Surface smooth Distance/Duration 600' Comments decreased step length outdoor Device Used none Level of Assistance SBA Surface pavement, curbs, slight grassy hills, parking lot Treatment Focus arm swing/step length, heelstrike Comments stairs, pavement, curbs, grassy hill, around parking blocks near helipad in figure 8 pattern Neuro Re-Education Treatment Other Activities sit to stand Details sit to stand Reps/Duration 4x5 reps Comments Lobby chair - next to fishbowl . Good control up and down. Final set with bungee cord attached to gait belt and PT providing random tugs - quick or sustained - as pt worked to maintain stability. sideways rock and reach Details sideways rock and reach Reps/Duration x10 Comments alternating forward rock and reach Details forward rock and reach Reps/Duration x10 Comments Modified with rail support. Tactile cues for quality weight shift backward step Details backward step Reps/Duration x10 Comments No rail support. Cued foot stomp on return to facilitate improved hip flexion/foot clearance. sideways step Details sideways step Reps/Duration x10 Comments alternating forward step Details forward step Reps/Duration x10 Comments alternating seated side to side Details seated side to side Reps/Duration x10 floor to ceiling Details floor to ceiling PT-OP-T Assessment and Plan Start: 01/23/22 21:26 Freq: Status: Active Protocol: Document 02/09/22 13:59 AW (Rec: 02/09/22 17:22 AW [id number]) Physical Therapy Assessment Goals Three Impairment Transfers Short Term Goal (STG) Steve will improve his 5x sit to stand to less than 20 seconds . STG Duration 2 weeks Two Impairment Balance Short Term Goal (STG) Steve will show improved dynamic balance by increasing his DGI score to at least 19/24. STG Duration 2 weeks Longterm Goal (LTG) Steve will show improved dynamic balance by walking through a cross walk while turning his head to look for traffic without loss of balance. LTG Duration 4 weeks One Impairment Gait Short Term Goal (STG) Steve will ambulate with good step length and arm swing for 1 minute over smooth terrain. STG Duration 2 weeks Cuprous Chloride Helper Goal (LTG) Steve will show improved gait by improving his 6 minute walk test to at least 1,200 feet. LTG Duration 4 weeks Assessment Summary Assessment Steve arrived with vague reports of depressed state but was able to focus and work hard in therapy today. He has improved performance on most exercises, needing modification for forward rock and reach only. He responds well to cues for heel/toe gait and is able to maintain for longer distances today. Physical Therapy Plan Next Visit Focus/Plan Next Note Type Treatment Note
--- NOTE | 2022-02-10 12:49 | PT.OTN ---
Current Diagnoses Parkinson's disease (02/10/22) Other abnormalities of gait and mobility (02/10/22) History of falling (02/10/22) Physical Therapy Treatment Note PT-OP-A Visit Information Start: 01/23/22 21:26 Freq: Status: Active Protocol: Document 02/10/22 10:55 AMB (Rec: 02/10/22 12:08 AMB [id number]) Out-Patient Physical Therapy Visit Information Visit Information Visit Type Treatment Note Visit Start Time 11:00 Visit Stop Time 12:00 Total Visit Minutes 60 Visit Number 9 PT-OP-B Current Condition Start: 01/23/22 21:26 Freq: Status: Active Protocol: Document 01/25/22 12:40 AMB (Rec: 01/25/22 13:01 AMB [id number]) Current Condition History of Current Condition Onset Date 1 year Current Complaints PD History of Current Condition Steve presents with Parkinson's for at least one year. His PCP noticed facial masking and then started him on levodopa/ carbidopa and it really helped his walking. He walks 3 miles/day with trekking poles but notes the 3rd mile is really bad with shuffling. Before taking medication he would fall when turning his head while walking and continues to be challenged by this but it is much better than it was. 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 Steve feels like exertion makes his PD symptoms worse as far as the tremor and ability to do fine motor activities. 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 Reports 3 falls in the last 2 months, mostly when on his walks. Wants to maintain his walking as it is very helpful for maintaining his blood sugars. Personal Factors Other Personal Factors That May Effect Peripheral neuropathy of Therapy/Recovery bilateral feet and hands, post concussive syndrome, neck pain, Hx pancreatitits, HepC, colon cancer PT-OP-C Subjective Start: 01/23/22 21:26 Freq: Status: Active Protocol: Document 02/10/22 10:55 AMB (Rec: 02/10/22 12:08 AMB [id number]) OP-PT Subjective Patient Comments Patient Comments Steve noticed some stumbling today while in the restroom, foot crossed over but was able to recover balance independently. PT-OP-D Balance Start: 01/23/22 21:26 Freq: Status: Active Protocol: Document 01/25/22 12:40 AMB (Rec: 01/25/22 12:54 AMB [id number]) Balance Tests mCTSIB mCTSIB Position 1 30 seconds but close SBA increased ankle sway mCTSIB Position 2 unsafe- CGA to prevent LOB PT-OP-E Functional Tests Start: 01/23/22 21:26 Freq: Status: Active Protocol: Document 01/25/22 12:40 AMB (Rec: 01/25/22 12:54 AMB [id number]) Functional Tests 6 Minute Walk Test Distance 910 Device Used none Comments reduced arm swing on R, flat foot contact bilat 10 Meter Walk Test Distance 11 seconds Device Used none Dynamic Gait Index (DGI) Score 12 DGI Impairment Rating 40 to <60% Impaired (Score 10- 14) Five Times Sit to Stand Test Score 26 Comments mild use of UEs, standard height chair, poor eccentric control PT-OP-G Mobility & Gait Start: 01/23/22 21:26 Freq: Status: Active Protocol: Document 01/25/22 12:40 AMB (Rec: 01/25/22 12:54 AMB [id number]) OP Gait Assessment Comments Gait Comments Flat foot strike with reduced arm swing bilaterally worst on the right. Falls forward with looking down. Able to turn without significant festination but does have smaller steps with turns. PT-OP-H Neuro Start: 01/23/22 21:26 Freq: Status: Active Protocol: Document 01/25/22 12:40 AMB (Rec: 01/25/22 12:54 AMB [id number]) Sensation Evaluation Comments Summary Comments neuropathy for years, numbness in bilateral feet up to ankles, numbness in hands Coordination Evaluation Lower Extremity Tests Left Foot Tapping Test Moderate Impairment Comments Coordination Comments taps feet well at slow speed, unable to alternate at higher speeds PT-OP-Q Treatments Start: 01/23/22 21:26 Freq: Status: Active Protocol: Document 02/10/22 10:55 AMB (Rec: 02/10/22 12:08 AMB [id number]) Gait Training Gait Activity outdoor Device Used none Level of Assistance SBA Surface pavement, curbs, slight grassy hills, parking lot Treatment Focus arm swing/step length, heelstrike Comments slight veering to the right Neuro Re-Education Treatment Other Activities sit to stand Details sit to stand Reps/Duration 2x5 reps Comments Blue balance foam underneath cues for controlled descent. sideways rock and reach Details sideways rock and reach Reps/Duration x10 Comments alternating forward rock and reach Details forward rock and reach Reps/Duration x10 Comments Modified with rail support. Tactile cues for quality weight shift backward step Details backward step Reps/Duration x10 Comments No rail support. Cued foot stomp on return to facilitate improved hip flexion/foot clearance. sideways step Details sideways step Reps/Duration x10 Comments alternating forward step Details forward step Reps/Duration x10 Comments alternating seated side to side Details seated side to side Reps/Duration x10 floor to ceiling Details floor to ceiling Canalithic Repositioning BPPV Treatment [place] Affected Canal(s) R Reps 1 Comments Pt with torsional upbeating nystagmus with R Horace-hallpike, mild in comparison to first treatment. PT-OP-T Assessment and Plan Start: 01/23/22 21:26 Freq: Status: Active Protocol: Document 02/10/22 10:55 AMB (Rec: 02/10/22 12:08 AMB [id number]) Physical Therapy Assessment Goals Three Impairment Transfers Short Term Goal (STG) Steve will improve his 5x sit to stand to less than 20 seconds . STG Duration 2 weeks Two Impairment Balance Short Term Goal (STG) Steve will show improved dynamic balance by increasing his DGI score to at least 19/24. STG Duration 2 weeks Shelter Goal (LTG) Steve will show improved dynamic balance by walking through a cross walk while turning his head to look for traffic without loss of balance. LTG Duration 4 weeks One Impairment Gait Short Term Goal (STG) Steve will ambulate with good step length and arm swing for 1 minute over smooth terrain. STG Duration 2 weeks Shelter Goal (LTG) Steve will show improved gait by improving his 6 minute walk test to at least 1,200 feet. LTG Duration 4 weeks Assessment Summary Assessment Steve is doing well with exercises, continues to have mild positive with R Horace- Hallpike, none with left. Does veer slightly with gait, worse with fatigue. Physical Therapy Plan Frequency and Duration Frequency of Treatment 4x/Week Duration of Treatment 5 weeks Plan of Care Start Date 01/25/22 Plan of Care End Date 03/01/22 Next Visit Focus/Plan Next Note Type Progress Note Next Visit Plan 10th visit note next visit
--- NOTE | 2022-02-11 15:17 | PT.OTN ---
Current Diagnoses Parkinson's disease (02/11/22) Other abnormalities of gait and mobility (02/11/22) History of falling (02/11/22) Physical Therapy Treatment Note PT-OP-A Visit Information Start: 01/23/22 21:26 Freq: Status: Active Protocol: Document 02/11/22 13:58 AW (Rec: 02/11/22 15:16 AW [id number]) Out-Patient Physical Therapy Visit Information Visit Information Visit Type Progress Note Visit Start Time 14:15 Visit Stop Time 15:15 Total Visit Minutes 60 Visit Number 10 PT-OP-B Current Condition Start: 01/23/22 21:26 Freq: Status: Active Protocol: Document 01/25/22 12:40 AMB (Rec: 01/25/22 13:01 AMB [id number]) Current Condition History of Current Condition Onset Date 1 year Current Complaints PD History of Current Condition Steve presents with Parkinson's for at least one year. His PCP noticed facial masking and then started him on levodopa/ carbidopa and it really helped his walking. He walks 3 miles/day with trekking poles but notes the 3rd mile is really bad with shuffling. Before taking medication he would fall when turning his head while walking and continues to be challenged by this but it is much better than it was. 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 Steve feels like exertion makes his PD symptoms worse as far as the tremor and ability to do fine motor activities. 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 Reports 3 falls in the last 2 months, mostly when on his walks. Wants to maintain his walking as it is very helpful for maintaining his blood sugars. Personal Factors Other Personal Factors That May Effect Peripheral neuropathy of Therapy/Recovery bilateral feet and hands, post concussive syndrome, neck pain, Hx pancreatitits, HepC, colon cancer PT-OP-C Subjective Start: 01/23/22 21:26 Freq: Status: Active Protocol: Document 02/11/22 13:58 AW (Rec: 02/11/22 15:16 AW [id number]) OP-PT Subjective Patient Comments Patient Comments I think this is actually working. PT-OP-D Balance Start: 01/23/22 21:26 Freq: Status: Active Protocol: Document 01/25/22 12:40 AMB (Rec: 01/25/22 12:54 AMB [id number]) Balance Tests mCTSIB mCTSIB Position 1 30 seconds but close SBA increased ankle sway mCTSIB Position 2 unsafe- CGA to prevent LOB PT-OP-E Functional Tests Start: 01/23/22 21:26 Freq: Status: Active Protocol: Document 01/25/22 12:40 AMB (Rec: 01/25/22 12:54 AMB [id number]) Functional Tests 6 Minute Walk Test Distance 910 Device Used none Comments reduced arm swing on R, flat foot contact bilat 10 Meter Walk Test Distance 11 seconds Device Used none Dynamic Gait Index (DGI) Score 12 DGI Impairment Rating 40 to <60% Impaired (Score 10- 14) Five Times Sit to Stand Test Score 26 Comments mild use of UEs, standard height chair, poor eccentric control PT-OP-G Mobility & Gait Start: 01/23/22 21:26 Freq: Status: Active Protocol: Document 01/25/22 12:40 AMB (Rec: 01/25/22 12:54 AMB [id number]) OP Gait Assessment Comments Gait Comments Flat foot strike with reduced arm swing bilaterally worst on the right. Falls forward with looking down. Able to turn without significant festination but does have smaller steps with turns. PT-OP-H Neuro Start: 01/23/22 21:26 Freq: Status: Active Protocol: Document 01/25/22 12:40 AMB (Rec: 01/25/22 12:54 AMB [id number]) Sensation Evaluation Comments Summary Comments neuropathy for years, numbness in bilateral feet up to ankles, numbness in hands Coordination Evaluation Lower Extremity Tests Left Foot Tapping Test Moderate Impairment Comments Coordination Comments taps feet well at slow speed, unable to alternate at higher speeds PT-OP-Q Treatments Start: 01/23/22 21:26 Freq: Status: Active Protocol: Document 02/11/22 13:58 AW (Rec: 02/11/22 15:16 AW [id number]) Gait Training Gait Activity 6MWT Description 6MWT Device Used none Level of Assistance IND Surface level Distance/Duration 1230'/6 min Treatment Focus assessment Comments 1.04 m/s avg gait speed. No LOB but pt does tend to drag foot in final three minutes. indoor Description dual task Device Used none Level of Assistance SBA Surface smooth Comments Improving foot clearance and arm swing while managing: - spelling a common phrase - counting backward by 3's Neuro Re-Education Treatment Other Activities sit to stand Details sit to stand Reps/Duration 2x5 reps Comments Timed: 8.5 sec with poor control, 9.9 sec with good control sideways rock and reach Details sideways rock and reach Reps/Duration x10 Comments alternating forward rock and reach Details forward rock and reach Reps/Duration x10 Comments Modified with rail support. Tactile cues for quality weight shift backward step Details backward step Reps/Duration x10 Comments No rail support. Cued foot stomp on return to facilitate improved hip flexion/foot clearance. sideways step Details sideways step Reps/Duration x10 Comments alternating forward step Details forward step Reps/Duration x10 Comments alternating seated side to side Details seated side to side Reps/Duration x10 floor to ceiling Details floor to ceiling PT-OP-T Assessment and Plan Start: 01/23/22 21:26 Freq: Status: Active Protocol: Document 02/11/22 13:58 AW (Rec: 02/11/22 15:16 AW [id number]) Physical Therapy Assessment Goals Three Impairment Transfers Short Term Goal (STG) Steve will improve his 5x sit to stand to less than 20 seconds . 02/11/22 - 8.5 seconds with poor control. 9.9 seconds with good control STG Duration 2 weeks Two Impairment Balance Short Term Goal (STG) Steve will show improved dynamic balance by increasing his DGI score to at least 19/24. 02/11/22 - Pt scores 18/24. See copy scanned to EMR. STG Duration 2 weeks School Resource Officer Goal (LTG) Steve will show improved dynamic balance by walking through a cross walk while turning his head to look for traffic without loss of balance. LTG Duration 4 weeks One Impairment Gait Short Term Goal (STG) Steve will ambulate with good step length and arm swing for 1 minute over smooth terrain. 02/11/22 PROGRESSING. Pt is able to maintain step length and arm swing but does lack foot clearance with increased distance STG Duration 2 weeks School Resource Officer Goal (LTG) Steve will show improved gait by improving his 6 minute walk test to at least 1,200 feet. 02/11/22 - 1230 feet on 6MWT. 1. 04 m/s. Progress goal to 1.2 m /s on 6MWT. LTG Duration 4 weeks Progress Towards Goals Progress Towards Goals Progressing Toward Goals Progress Comments Steve met his 5 Time Sit to Stand goal. DGI score today was 18/24 (improved from 05/29 and approaching goal). He is able to maintain amplitude over short distances with increased cognitive load for dual task. Assessment Summary Assessment Steve's balance with exercises and gait have improved significantly. He is making good progress toward goals and has met his 5 Time Sit to Stand goal. Gait with cognitive task is improving slowly. Spent extra time today assessing pt's effort with all activities and asking him to increase effort where possible. Physical Therapy Plan Frequency and Duration Frequency of Treatment 4x/Week Duration of Treatment 5 weeks Plan of Care Start Date 01/25/22 Plan of Care End Date 03/01/22 Next Visit Focus/Plan Next Note Type Treatment Note
--- NOTE | 2022-02-15 12:42 | PT.OTN ---
Current Diagnoses Parkinson's disease (02/15/22) Other abnormalities of gait and mobility (02/15/22) History of falling (02/15/22) Physical Therapy Treatment Note PT-OP-A Visit Information Start: 01/23/22 21:26 Freq: Status: Active Protocol: Document 02/15/22 11:04 AMB (Rec: 02/15/22 12:00 AMB [id number]) Out-Patient Physical Therapy Visit Information Visit Information Visit Type Treatment Note Visit Start Time 11:00 Visit Stop Time 12:00 Total Visit Minutes 60 Visit Number 11 PT-OP-B Current Condition Start: 01/23/22 21:26 Freq: Status: Active Protocol: Document 01/25/22 12:40 AMB (Rec: 01/25/22 13:01 AMB [id number]) Current Condition History of Current Condition Onset Date 1 year Current Complaints PD History of Current Condition Steve presents with Parkinson's for at least one year. His PCP noticed facial masking and then started him on levodopa/ carbidopa and it really helped his walking. He walks 3 miles/day with trekking poles but notes the 3rd mile is really bad with shuffling. Before taking medication he would fall when turning his head while walking and continues to be challenged by this but it is much better than it was. 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 Steve feels like exertion makes his PD symptoms worse as far as the tremor and ability to do fine motor activities. 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 Reports 3 falls in the last 2 months, mostly when on his walks. Wants to maintain his walking as it is very helpful for maintaining his blood sugars. Personal Factors Other Personal Factors That May Effect Peripheral neuropathy of Therapy/Recovery bilateral feet and hands, post concussive syndrome, neck pain, Hx pancreatitits, HepC, colon cancer PT-OP-C Subjective Start: 01/23/22 21:26 Freq: Status: Active Protocol: Document 02/15/22 11:04 AMB (Rec: 02/15/22 12:00 AMB [id number]) OP-PT Subjective Patient Comments Patient Comments Having a bad day with the pancreas PT-OP-D Balance Start: 01/23/22 21:26 Freq: Status: Active Protocol: Document 01/25/22 12:40 AMB (Rec: 01/25/22 12:54 AMB [id number]) Balance Tests mCTSIB mCTSIB Position 1 30 seconds but close SBA increased ankle sway mCTSIB Position 2 unsafe- CGA to prevent LOB PT-OP-E Functional Tests Start: 01/23/22 21:26 Freq: Status: Active Protocol: Document 01/25/22 12:40 AMB (Rec: 01/25/22 12:54 AMB [id number]) Functional Tests 6 Minute Walk Test Distance 910 Device Used none Comments reduced arm swing on R, flat foot contact bilat 10 Meter Walk Test Distance 11 seconds Device Used none Dynamic Gait Index (DGI) Score 12 DGI Impairment Rating 40 to <60% Impaired (Score 10- 14) Five Times Sit to Stand Test Score 26 Comments mild use of UEs, standard height chair, poor eccentric control PT-OP-G Mobility & Gait Start: 01/23/22 21:26 Freq: Status: Active Protocol: Document 01/25/22 12:40 AMB (Rec: 01/25/22 12:54 AMB [id number]) OP Gait Assessment Comments Gait Comments Flat foot strike with reduced arm swing bilaterally worst on the right. Falls forward with looking down. Able to turn without significant festination but does have smaller steps with turns. PT-OP-H Neuro Start: 01/23/22 21:26 Freq: Status: Active Protocol: Document 01/25/22 12:40 AMB (Rec: 01/25/22 12:54 AMB [id number]) Sensation Evaluation Comments Summary Comments neuropathy for years, numbness in bilateral feet up to ankles, numbness in hands Coordination Evaluation Lower Extremity Tests Left Foot Tapping Test Moderate Impairment Comments Coordination Comments taps feet well at slow speed, unable to alternate at higher speeds PT-OP-Q Treatments Start: 01/23/22 21:26 Freq: Status: Active Protocol: Document 02/15/22 11:00 AMB (Rec: 02/15/22 12:42 AMB [id number]) Gait Training Gait Activity outdoor Device Used none Level of Assistance SBA Surface pavement, curbs, slight grassy hills, parking lot Treatment Focus arm swing/step length, heelstrike Neuro Re-Education Treatment Other Activities sit to stand Details sit to stand Reps/Duration 2x5 reps Comments from 16 block sideways rock and reach Details sideways rock and reach Reps/Duration x10 Comments alternating forward rock and reach Details forward rock and reach Reps/Duration x10 Comments No UE support. Tactile cues for quality weight shift backward step Details backward step Reps/Duration x10 Comments No rail support. Cued foot stomp on return to facilitate improved hip flexion/foot clearance. sideways step Details sideways step Reps/Duration x10 Comments alternating forward step Details forward step Reps/Duration x10 Comments alternating seated side to side Details seated side to side Reps/Duration x10 floor to ceiling Details floor to ceiling Reps/Duration 10 PT-OP-T Assessment and Plan Start: 01/23/22 21:26 Freq: Status: Active Protocol: Document 02/15/22 11:04 AMB (Rec: 02/15/22 12:00 AMB [id number]) Physical Therapy Assessment Goals Three Impairment Transfers Short Term Goal (STG) Steve will improve his 5x sit to stand to less than 20 seconds . 02/11/22 - 8.5 seconds with poor control. 9.9 seconds with good control STG Duration 2 weeks Two Impairment Balance Short Term Goal (STG) Steve will show improved dynamic balance by increasing his DGI score to at least 19/24. 02/11/22 - Pt scores 18/24. See copy scanned to EMR. STG Duration 2 weeks [facility] Goal (LTG) Steve will show improved dynamic balance by walking through a cross walk while turning his head to look for traffic without loss of balance. LTG Duration 4 weeks One Impairment Gait Short Term Goal (STG) Steve will ambulate with good step length and arm swing for 1 minute over smooth terrain. 02/11/22 PROGRESSING. Pt is able to maintain step length and arm swing but does lack foot clearance with increased distance STG Duration 2 weeks Dealership Manager Goal (LTG) Steve will show improved gait by improving his 6 minute walk test to at least 1,200 feet. 02/11/22 - 1230 feet on 6MWT. 1. 04 m/s. Progress goal to 1.2 m /s on 6MWT. LTG Duration 4 weeks Assessment Summary Assessment Steve's gait and balance are improving, does need cues with exercises when not using UE support now. Physical Therapy Plan Next Visit Focus/Plan Next Note Type Treatment Note Next Visit Plan Follow up on gait safety, effort with HEP
--- NOTE | 2022-02-16 15:12 | PT.OTN ---
Current Diagnoses Parkinson's disease (02/16/22) Other abnormalities of gait and mobility (02/16/22) History of falling (02/16/22) Physical Therapy Treatment Note PT-OP-A Visit Information Start: 01/23/22 21:26 Freq: Status: Active Protocol: Document 02/16/22 13:04 AW (Rec: 02/16/22 15:12 AW [id number]) Out-Patient Physical Therapy Visit Information Visit Information Visit Type Treatment Note Visit Start Time 14:15 Visit Stop Time 15:15 Total Visit Minutes 60 Visit Number 12 PT-OP-B Current Condition Start: 01/23/22 21:26 Freq: Status: Active Protocol: Document 01/25/22 12:40 AMB (Rec: 01/25/22 13:01 AMB [id number]) Current Condition History of Current Condition Onset Date 1 year Current Complaints PD History of Current Condition Steve presents with Parkinson's for at least one year. His PCP noticed facial masking and then started him on levodopa/ carbidopa and it really helped his walking. He walks 3 miles/day with trekking poles but notes the 3rd mile is really bad with shuffling. Before taking medication he would fall when turning his head while walking and continues to be challenged by this but it is much better than it was. 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 Steve feels like exertion makes his PD symptoms worse as far as the tremor and ability to do fine motor activities. 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 Reports 3 falls in the last 2 months, mostly when on his walks. Wants to maintain his walking as it is very helpful for maintaining his blood sugars. Personal Factors Other Personal Factors That May Effect Peripheral neuropathy of Therapy/Recovery bilateral feet and hands, post concussive syndrome, neck pain, Hx pancreatitits, HepC, colon cancer PT-OP-C Subjective Start: 01/23/22 21:26 Freq: Status: Active Protocol: Document 02/16/22 13:04 AW (Rec: 02/16/22 15:12 AW [id number]) OP-PT Subjective Patient Comments Patient Comments [place]. Found a new water blister on left [place] head. PT-OP-D Balance Start: 01/23/22 21:26 Freq: Status: Active Protocol: Document 01/25/22 12:40 AMB (Rec: 01/25/22 12:54 AMB [id number]) Balance Tests mCTSIB mCTSIB Position 1 30 seconds but close SBA increased ankle sway mCTSIB Position 2 unsafe- CGA to prevent LOB PT-OP-E Functional Tests Start: 01/23/22 21:26 Freq: Status: Active Protocol: Document 01/25/22 12:40 AMB (Rec: 01/25/22 12:54 AMB [id number]) Functional Tests 6 Minute Walk Test Distance 910 Device Used none Comments reduced arm swing on R, flat foot contact bilat 10 Meter Walk Test Distance 11 seconds Device Used none Dynamic Gait Index (DGI) Score 12 DGI Impairment Rating 40 to <60% Impaired (Score 10- 14) Five Times Sit to Stand Test Score 26 Comments mild use of UEs, standard height chair, poor eccentric control PT-OP-G Mobility & Gait Start: 01/23/22 21:26 Freq: Status: Active Protocol: Document 01/25/22 12:40 AMB (Rec: 01/25/22 12:54 AMB [id number]) OP Gait Assessment Comments Gait Comments Flat foot strike with reduced arm swing bilaterally worst on the right. Falls forward with looking down. Able to turn without significant festination but does have smaller steps with turns. PT-OP-H Neuro Start: 01/23/22 21:26 Freq: Status: Active Protocol: Document 01/25/22 12:40 AMB (Rec: 01/25/22 12:54 AMB [id number]) Sensation Evaluation Comments Summary Comments neuropathy for years, numbness in bilateral feet up to ankles, numbness in hands Coordination Evaluation Lower Extremity Tests Left Foot Tapping Test Moderate Impairment Comments Coordination Comments taps feet well at slow speed, unable to alternate at higher speeds PT-OP-Q Treatments Start: 01/23/22 21:26 Freq: Status: Active Protocol: Document 02/16/22 13:04 AW (Rec: 02/16/22 15:12 AW [id number]) Gym Equipment Shuttle Balance WBOS Details WBOS - blue chains Comments - WBOS EO - WBOS head turns - WBOS head nods Gait Training Gait Activity outdoor Device Used none Level of Assistance SBA Surface pavement, curbs, grassy hills, parking lot Treatment Focus arm swing/step length, heelstrike Comments - also completed figure 8's around parking blocks near [facility] [employer] x 4 laps Neuro Re-Education Treatment Other Activities sit to stand Details sit to stand Reps/Duration 2x5 reps Comments from 16 block sideways rock and reach Details sideways rock and reach Reps/Duration x10 Comments alternating forward rock and reach Details forward rock and reach Reps/Duration x10 Comments No UE support. Tactile cues for quality weight shift. Pt tends to come up on both toes with forward weight shift and needs multiple reps practice to overcome. backward step Details backward step Reps/Duration x10 Comments No rail support. Alternating on firm surface sideways step Details sideways step Reps/Duration x10 Comments alternating on yoga mat forward step Details forward step Reps/Duration x10 Comments alternating on yoga mat seated side to side Details seated side to side Reps/Duration x10 floor to ceiling Details floor to ceiling Reps/Duration 10 PT-OP-T Assessment and Plan Start: 01/23/22 21:26 Freq: Status: Active Protocol: Document 02/16/22 13:04 AW (Rec: 02/16/22 15:12 AW [id number]) Physical Therapy Assessment Goals Three Impairment Transfers Short Term Goal (STG) Steve will improve his 5x sit to stand to less than 20 seconds . 02/11/22 - 8.5 seconds with poor control. 9.9 seconds with good control STG Duration 2 weeks Two Impairment Balance Short Term Goal (STG) Steve will show improved dynamic balance by increasing his DGI score to at least 19/24. 02/11/22 - Pt scores 18/24. See copy scanned to EMR. STG Duration 2 weeks Physician Extender Goal (LTG) Steve will show improved dynamic balance by walking through a cross walk while turning his head to look for traffic without loss of balance. LTG Duration 4 weeks One Impairment Gait Short Term Goal (STG) Steve will ambulate with good step length and arm swing for 1 minute over smooth terrain. 02/11/22 PROGRESSING. Pt is able to maintain step length and arm swing but does lack foot clearance with increased distance STG Duration 2 weeks Skilled Nursing Goal (LTG) Steve will show improved gait by improving his 6 minute walk test to at least 1,200 feet. 02/11/22 - 1230 feet on 6MWT. 1. 04 m/s. Progress goal to 1.2 m /s on 6MWT. LTG Duration 4 weeks Assessment Summary Assessment Steve was able to complete forward and side step on yoga mats today for increased balance challenge. Also introduced shuttle balance today to work on balance reactions. Physical Therapy Plan Next Visit Focus/Plan Next Note Type Treatment Note
--- NOTE | 2022-02-18 15:22 | PT.OTN ---
Current Diagnoses Parkinson's disease (02/18/22) Other abnormalities of gait and mobility (02/18/22) History of falling (02/18/22) Physical Therapy Treatment Note PT-OP-A Visit Information Start: 01/23/22 21:26 Freq: Status: Active Protocol: Document 02/18/22 14:13 AW (Rec: 02/18/22 15:22 AW [id number]) Out-Patient Physical Therapy Visit Information Visit Information Visit Type Treatment Note Visit Start Time 14:15 Visit Stop Time 15:15 Total Visit Minutes 60 Visit Number 13 PT-OP-B Current Condition Start: 01/23/22 21:26 Freq: Status: Active Protocol: Document 01/25/22 12:40 AMB (Rec: 01/25/22 13:01 AMB [id number]) Current Condition History of Current Condition Onset Date 1 year Current Complaints PD History of Current Condition Steve presents with Parkinson's for at least one year. His PCP noticed facial masking and then started him on levodopa/ carbidopa and it really helped his walking. He walks 3 miles/day with trekking poles but notes the 3rd mile is really bad with shuffling. Before taking medication he would fall when turning his head while walking and continues to be challenged by this but it is much better than it was. 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 Steve feels like exertion makes his PD symptoms worse as far as the tremor and ability to do fine motor activities. 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 Reports 3 falls in the last 2 months, mostly when on his walks. Wants to maintain his walking as it is very helpful for maintaining his blood sugars. Personal Factors Other Personal Factors That May Effect Peripheral neuropathy of Therapy/Recovery bilateral feet and hands, post concussive syndrome, neck pain, Hx pancreatitits, HepC, colon cancer PT-OP-C Subjective Start: 01/23/22 21:26 Freq: Status: Active Protocol: Document 02/18/22 14:13 AW (Rec: 02/18/22 15:22 AW [id number]) OP-PT Subjective Patient Comments Patient Comments Steve states exercises at home are going better. PT-OP-D Balance Start: 01/23/22 21:26 Freq: Status: Active Protocol: Document 01/25/22 12:40 AMB (Rec: 01/25/22 12:54 AMB [id number]) Balance Tests mCTSIB mCTSIB Position 1 30 seconds but close SBA increased ankle sway mCTSIB Position 2 unsafe- CGA to prevent LOB PT-OP-E Functional Tests Start: 01/23/22 21:26 Freq: Status: Active Protocol: Document 01/25/22 12:40 AMB (Rec: 01/25/22 12:54 AMB [id number]) Functional Tests 6 Minute Walk Test Distance 910 Device Used none Comments reduced arm swing on R, flat foot contact bilat 10 Meter Walk Test Distance 11 seconds Device Used none Dynamic Gait Index (DGI) Score 12 DGI Impairment Rating 40 to <60% Impaired (Score 10- 14) Five Times Sit to Stand Test Score 26 Comments mild use of UEs, standard height chair, poor eccentric control PT-OP-G Mobility & Gait Start: 01/23/22 21:26 Freq: Status: Active Protocol: Document 01/25/22 12:40 AMB (Rec: 01/25/22 12:54 AMB [id number]) OP Gait Assessment Comments Gait Comments Flat foot strike with reduced arm swing bilaterally worst on the right. Falls forward with looking down. Able to turn without significant festination but does have smaller steps with turns. PT-OP-H Neuro Start: 01/23/22 21:26 Freq: Status: Active Protocol: Document 01/25/22 12:40 AMB (Rec: 01/25/22 12:54 AMB [id number]) Sensation Evaluation Comments Summary Comments neuropathy for years, numbness in bilateral feet up to ankles, numbness in hands Coordination Evaluation Lower Extremity Tests Left Foot Tapping Test Moderate Impairment Comments Coordination Comments taps feet well at slow speed, unable to alternate at higher speeds PT-OP-Q Treatments Start: 01/23/22 21:26 Freq: Status: Active Protocol: Document 02/18/22 14:13 AW (Rec: 02/18/22 15:22 AW [id number]) Gym Equipment Shuttle Balance WBOS Details WBOS - red chains Comments - WBOS EO - WBOS head turns - WBOS head nods Gait Training Gait Activity indoor Description dual task Device Used none Level of Assistance SBA Surface smooth Comments Improving foot clearance and arm swing while -counting backward by 3's -incorporating head turns -walking backward outdoor Device Used none Level of Assistance SBA Surface pavement, curbs, grassy hills, parking lot Treatment Focus arm swing/step length, heelstrike Comments - included incline/decline by walk in clinic to practice control on hills Neuro Re-Education Treatment Balance Activities rocker board Details rocker board Comments - A/P and lateral with EO, head turns, nods Other Activities sit to stand Details sit to stand Reps/Duration 2x8 reps Comments from 16 block sideways rock and reach Details sideways rock and reach Reps/Duration x10 Comments alternating forward rock and reach Details forward rock and reach Reps/Duration x10 Comments No UE support. Step forward . Step back. backward step Details backward step Reps/Duration x10 Comments No rail support. Alternating on firm surface sideways step Details sideways step Reps/Duration x10 Comments alternating on blue tumbling mat forward step Details forward step Reps/Duration x10 Comments alternating on blue tumbling mat seated side to side Details seated side to side Reps/Duration x10 Comments on ulises stool floor to ceiling Details floor to ceiling Reps/Duration 10 PT-OP-T Assessment and Plan Start: 01/23/22 21:26 Freq: Status: Active Protocol: Document 02/18/22 14:13 AW (Rec: 02/18/22 15:22 AW [id number]) Physical Therapy Assessment Goals Three Impairment Transfers Short Term Goal (STG) Steve will improve his 5x sit to stand to less than 20 seconds . 02/11/22 - 8.5 seconds with poor control. 9.9 seconds with good control STG Duration 2 weeks Two Impairment Balance Short Term Goal (STG) Steve will show improved dynamic balance by increasing his DGI score to at least 19/24. 02/11/22 - Pt scores 18/24. See copy scanned to EMR. STG Duration 2 weeks Segment Block Layer Goal (LTG) Steve will show improved dynamic balance by walking through a cross walk while turning his head to look for traffic without loss of balance. LTG Duration 4 weeks One Impairment Gait Short Term Goal (STG) Steve will ambulate with good step length and arm swing for 1 minute over smooth terrain. 02/11/22 PROGRESSING. Pt is able to maintain step length and arm swing but does lack foot clearance with increased distance STG Duration 2 weeks [facility] Goal (LTG) Steve will show improved gait by improving his 6 minute walk test to at least 1,200 feet. 02/11/22 - 1230 feet on 6MWT. 1. 04 m/s. Progress goal to 1.2 m /s on 6MWT. LTG Duration 4 weeks Assessment Summary Assessment Progressed forward and side step on blue tumbling mat today. Steve was able to manage red clips on shuttle balance today with a mix of ankle and hip reactions. Increased stability training with perturbations may be helpful. Physical Therapy Plan Next Visit Focus/Plan Next Note Type Treatment Note
--- NOTE | 2022-02-23 17:17 | PT.OTN ---
Current Diagnoses Parkinson's disease (02/23/22) Other abnormalities of gait and mobility (02/23/22) History of falling (02/23/22) Physical Therapy Treatment Note PT-OP-A Visit Information Start: 01/23/22 21:26 Freq: Status: Active Protocol: Document 02/23/22 13:02 AW (Rec: 02/23/22 17:17 AW [id number]) Out-Patient Physical Therapy Visit Information Visit Information Visit Type Treatment Note Visit Start Time 14:15 Visit Stop Time 15:15 Total Visit Minutes 60 Visit Number 14 PT-OP-B Current Condition Start: 01/23/22 21:26 Freq: Status: Active Protocol: Document 01/25/22 12:40 AMB (Rec: 01/25/22 13:01 AMB [id number]) Current Condition History of Current Condition Onset Date 1 year Current Complaints PD History of Current Condition Steve presents with Parkinson's for at least one year. His PCP noticed facial masking and then started him on levodopa/ carbidopa and it really helped his walking. He walks 3 miles/day with trekking poles but notes the 3rd mile is really bad with shuffling. Before taking medication he would fall when turning his head while walking and continues to be challenged by this but it is much better than it was. 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 Steve feels like exertion makes his PD symptoms worse as far as the tremor and ability to do fine motor activities. 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 Reports 3 falls in the last 2 months, mostly when on his walks. Wants to maintain his walking as it is very helpful for maintaining his blood sugars. Personal Factors Other Personal Factors That May Effect Peripheral neuropathy of Therapy/Recovery bilateral feet and hands, post concussive syndrome, neck pain, Hx pancreatitits, HepC, colon cancer PT-OP-C Subjective Start: 01/23/22 21:26 Freq: Status: Active Protocol: Document 02/23/22 13:02 AW (Rec: 02/23/22 17:17 AW [id number]) OP-PT Subjective Patient Comments Patient Comments Steve got his bivalent COVID booster last Tuesday and felt off and fatigued for at least a day and a half. PT-OP-D Balance Start: 01/23/22 21:26 Freq: Status: Active Protocol: Document 01/25/22 12:40 AMB (Rec: 01/25/22 12:54 AMB [id number]) Balance Tests mCTSIB mCTSIB Position 1 30 seconds but close SBA increased ankle sway mCTSIB Position 2 unsafe- CGA to prevent LOB PT-OP-E Functional Tests Start: 01/23/22 21:26 Freq: Status: Active Protocol: Document 01/25/22 12:40 AMB (Rec: 01/25/22 12:54 AMB [id number]) Functional Tests 6 Minute Walk Test Distance 910 Device Used none Comments reduced arm swing on R, flat foot contact bilat 10 Meter Walk Test Distance 11 seconds Device Used none Dynamic Gait Index (DGI) Score 12 DGI Impairment Rating 40 to <60% Impaired (Score 10- 14) Five Times Sit to Stand Test Score 26 Comments mild use of UEs, standard height chair, poor eccentric control PT-OP-G Mobility & Gait Start: 01/23/22 21:26 Freq: Status: Active Protocol: Document 01/25/22 12:40 AMB (Rec: 01/25/22 12:54 AMB [id number]) OP Gait Assessment Comments Gait Comments Flat foot strike with reduced arm swing bilaterally worst on the right. Falls forward with looking down. Able to turn without significant festination but does have smaller steps with turns. PT-OP-H Neuro Start: 01/23/22 21:26 Freq: Status: Active Protocol: Document 01/25/22 12:40 AMB (Rec: 01/25/22 12:54 AMB [id number]) Sensation Evaluation Comments Summary Comments neuropathy for years, numbness in bilateral feet up to ankles, numbness in hands Coordination Evaluation Lower Extremity Tests Left Foot Tapping Test Moderate Impairment Comments Coordination Comments taps feet well at slow speed, unable to alternate at higher speeds PT-OP-Q Treatments Start: 01/23/22 21:26 Freq: Status: Active Protocol: Document 02/23/22 13:02 AW (Rec: 02/23/22 17:17 AW [id number]) Gym Equipment Shuttle Balance WBOS Details blue chains Comments - WBOS EO - WBOS 1/2 squats - NBOS 1/2 squats Gait Training Gait Activity indoor Device Used none Level of Assistance SBA Surface smooth Comments BIG side step every 10th stride, including on corners Neuro Re-Education Treatment Coordination Activities box step Details box step Speed 60-70 bpm Comments Max cues for sequencing. Pt unable to increase speed without LOB. grapevine Details grapevine Equipment rail prn Speed not assessed Comments Max cues for sequencing. Occ CGA for balance Other Activities sit to stand Details sit to stand Reps/Duration 2x8 reps Comments from 16 block sideways rock and reach Details sideways rock and reach Reps/Duration x10 Comments alternating forward rock and reach Details forward rock and reach Reps/Duration x10 Comments No UE support. Step forward . Step back. backward step Details backward step Reps/Duration x10 Comments No rail support. Alternating on firm surface sideways step Details sideways step Reps/Duration x10 Comments alternating on blue tumbling mat forward step Details forward step Reps/Duration x10 Comments alternating on blue tumbling mat; good reactive balance in response to + LOB anteriorly seated side to side Details seated side to side Reps/Duration x10 Comments on ulises stool floor to ceiling Details floor to ceiling Reps/Duration 10 Comments on ulises stool PT-OP-T Assessment and Plan Start: 01/23/22 21:26 Freq: Status: Active Protocol: Document 02/23/22 13:02 AW (Rec: 02/23/22 17:17 AW [id number]) Physical Therapy Assessment Goals Three Impairment Transfers Short Term Goal (STG) Steve will improve his 5x sit to stand to less than 20 seconds . 02/11/22 - 8.5 seconds with poor control. 9.9 seconds with good control STG Duration 2 weeks Two Impairment Balance Short Term Goal (STG) Steve will show improved dynamic balance by increasing his DGI score to at least 19/24. 02/11/22 - Pt scores 18/24. See copy scanned to EMR. STG Duration 2 weeks Senior Living Goal (LTG) Steve will show improved dynamic balance by walking through a cross walk while turning his head to look for traffic without loss of balance. LTG Duration 4 weeks One Impairment Gait Short Term Goal (STG) Steve will ambulate with good step length and arm swing for 1 minute over smooth terrain. 02/11/22 PROGRESSING. Pt is able to maintain step length and arm swing but does lack foot clearance with increased distance STG Duration 2 weeks Tariff Counsel Goal (LTG) Steve will show improved gait by improving his 6 minute walk test to at least 1,200 feet. 02/11/22 - 1230 feet on 6MWT. 1. 04 m/s. Progress goal to 1.2 m /s on 6MWT. LTG Duration 4 weeks Assessment Summary Assessment Focused on complicated gait patterns today with pt able to side step every 10th stride. Worked on grapevine and box step to improve coordination and balance reactions. Physical Therapy Plan Next Visit Focus/Plan Next Note Type Treatment Note
--- NOTE | 2022-02-24 14:27 | PT.OTN ---
Current Diagnoses Parkinson's disease (02/24/22) Other abnormalities of gait and mobility (02/24/22) History of falling (02/24/22) Physical Therapy Treatment Note PT-OP-A Visit Information Start: 01/23/22 21:26 Freq: Status: Active Protocol: Document 02/24/22 13:04 AW (Rec: 02/24/22 14:27 AW [id number]) Out-Patient Physical Therapy Visit Information Visit Information Visit Type Treatment Note Visit Start Time 13:30 Visit Stop Time 14:30 Total Visit Minutes 60 Visit Number 15 PT-OP-B Current Condition Start: 01/23/22 21:26 Freq: Status: Active Protocol: Document 01/25/22 12:40 AMB (Rec: 01/25/22 13:01 AMB [id number]) Current Condition History of Current Condition Onset Date 1 year Current Complaints PD History of Current Condition Steve presents with Parkinson's for at least one year. His PCP noticed facial masking and then started him on levodopa/ carbidopa and it really helped his walking. He walks 3 miles/day with trekking poles but notes the 3rd mile is really bad with shuffling. Before taking medication he would fall when turning his head while walking and continues to be challenged by this but it is much better than it was. 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 Steve feels like exertion makes his PD symptoms worse as far as the tremor and ability to do fine motor activities. 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 Reports 3 falls in the last 2 months, mostly when on his walks. Wants to maintain his walking as it is very helpful for maintaining his blood sugars. Personal Factors Other Personal Factors That May Effect Peripheral neuropathy of Therapy/Recovery bilateral feet and hands, post concussive syndrome, neck pain, Hx pancreatitits, HepC, colon cancer PT-OP-C Subjective Start: 01/23/22 21:26 Freq: Status: Active Protocol: Document 02/24/22 13:04 AW (Rec: 02/24/22 14:27 AW [id number]) OP-PT Subjective Patient Comments Patient Comments Feeling stiff today but otherwise ok. PT-OP-D Balance Start: 01/23/22 21:26 Freq: Status: Active Protocol: Document 01/25/22 12:40 AMB (Rec: 01/25/22 12:54 AMB [id number]) Balance Tests mCTSIB mCTSIB Position 1 30 seconds but close SBA increased ankle sway mCTSIB Position 2 unsafe- CGA to prevent LOB PT-OP-E Functional Tests Start: 01/23/22 21:26 Freq: Status: Active Protocol: Document 01/25/22 12:40 AMB (Rec: 01/25/22 12:54 AMB [id number]) Functional Tests 6 Minute Walk Test Distance 910 Device Used none Comments reduced arm swing on R, flat foot contact bilat 10 Meter Walk Test Distance 11 seconds Device Used none Dynamic Gait Index (DGI) Score 12 DGI Impairment Rating 40 to <60% Impaired (Score 10- 14) Five Times Sit to Stand Test Score 26 Comments mild use of UEs, standard height chair, poor eccentric control PT-OP-G Mobility & Gait Start: 01/23/22 21:26 Freq: Status: Active Protocol: Document 01/25/22 12:40 AMB (Rec: 01/25/22 12:54 AMB [id number]) OP Gait Assessment Comments Gait Comments Flat foot strike with reduced arm swing bilaterally worst on the right. Falls forward with looking down. Able to turn without significant festination but does have smaller steps with turns. PT-OP-H Neuro Start: 01/23/22 21:26 Freq: Status: Active Protocol: Document 01/25/22 12:40 AMB (Rec: 01/25/22 12:54 AMB [id number]) Sensation Evaluation Comments Summary Comments neuropathy for years, numbness in bilateral feet up to ankles, numbness in hands Coordination Evaluation Lower Extremity Tests Left Foot Tapping Test Moderate Impairment Comments Coordination Comments taps feet well at slow speed, unable to alternate at higher speeds PT-OP-Q Treatments Start: 01/23/22 21:26 Freq: Status: Active Protocol: Document 02/24/22 13:04 AW (Rec: 02/24/22 14:27 AW [id number]) Gym Equipment Shuttle Balance WBOS Details blue chains - A/P and lateral Comments - WBOS EO - WBOS 1/2 squats - WBOS with head turns (90 bpm ) and nods (60 bpm and challenging) Gait Training Gait Activity indoor Device Used none Level of Assistance SBA Surface smooth, stairs Comments BIG walking with distracting conversation. Sidestepping and grapevining at artwork installation near [facility] outdoor Device Used none Level of Assistance SBA Surface pavement, curbs, grassy hills, parking lot Treatment Focus arm swing/step length, heelstrike Comments - included crosswalks with increase in speed and head turns for functional practice Neuro Re-Education Treatment Other Activities sit to stand Details sit to stand Reps/Duration 2x8 reps Comments from 16 block with perturbations at waist/pelvis sideways rock and reach Details sideways rock and reach Reps/Duration x10 Comments alternating forward rock and reach Details forward rock and reach Reps/Duration x10 Comments No UE support. Step forward . Step back. backward step Details backward step Reps/Duration x10 Comments No rail support. Alternating on firm surface sideways step Details sideways step Reps/Duration x10 Comments alternating on blue tumbling mat forward step Details forward step Reps/Duration x10 Comments alternating on blue tumbling mat; good reactive balance in response to + LOB anteriorly seated side to side Details seated side to side Reps/Duration x10 Comments on ulises stool floor to ceiling Details floor to ceiling Reps/Duration 10 Comments on ulises stool PT-OP-T Assessment and Plan Start: 01/23/22 21:26 Freq: Status: Active Protocol: Document 02/24/22 13:04 AW (Rec: 02/24/22 14:27 AW [id number]) Physical Therapy Assessment Goals Three Impairment Transfers Short Term Goal (STG) Steve will improve his 5x sit to stand to less than 20 seconds . 02/11/22 - 8.5 seconds with poor control. 9.9 seconds with good control STG Duration 2 weeks GOAL MET Two Impairment Balance Short Term Goal (STG) Steve will show improved dynamic balance by increasing his DGI score to at least 19/24. 02/11/22 - Pt scores 18/24. See copy scanned to EMR. STG Duration 2 weeks PROGRESSING Machine Ii Coremaker Goal (LTG) Steve will show improved dynamic balance by walking through a cross walk while turning his head to look for traffic without loss of balance. LTG Duration 4 weeks One Impairment Gait Short Term Goal (STG) Steve will ambulate with good step length and arm swing for 1 minute over smooth terrain. 02/11/22 PROGRESSING. Pt is able to maintain step length and arm swing but does lack foot clearance with increased distance STG Duration 2 weeks Machine Ii Coremaker Goal (LTG) Steve will show improved gait by improving his 6 minute walk test to at least 1,200 feet. 02/11/22 - 1230 feet on 6MWT. 1. 04 m/s. Progress goal to 1.2 m /s on 6MWT. LTG Duration 4 weeks Assessment Summary Assessment Steve was able to manage busy crosswalks in traffic today. He could increase his speed and turn his head without LOB. Physical Therapy Plan Next Visit Focus/Plan Next Note Type Treatment Note
--- NOTE | 2022-02-24 14:30 | PT.OPPOC ---
Physical, Occupational & Speech Therapy At Current Diagnoses Parkinson's disease (02/24/22) Other abnormalities of gait and mobility (02/24/22) History of falling (02/24/22) Visit Care Team Role Provider Type Jean Diaz MD Family Provider Non-Staff Primary Care Provider Specialty: Medical Address: [address] [place], [address] Email: Konstantin Cavanaugh MD Attending Provider Non-Staff Referring Provider Specialty: Neurology Address: [address] [facility], [place], [address] Email: Plan Of Care PT-OP-T Assessment and Plan Start: 01/23/22 21:26 Freq: Status: Active Protocol: Document 02/24/22 14:29 AW (Rec: 02/24/22 14:30 AW [id number]) Physical Therapy Assessment Rehab Potential Rehabilitation Potential Good Evaluation Complexity Number of Personal Factors/Comorbidities 1-2 Number of Body Systems Impaired 4 or More Clinical Presentation at Evaluation Evolving Impairments Impairments Activity Tolerance,Balance, Coordination,Functional Activities,Gait,Pain,Posture, Sensation,Transfers Goals Three Impairment Transfers Short Term Goal (STG) Steve will improve his 5x sit to stand to less than 20 seconds . 02/11/22 - 8.5 seconds with poor control. 9.9 seconds with good control STG Duration 2 weeks GOAL MET Two Impairment Balance Short Term Goal (STG) Steve will show improved dynamic balance by increasing his DGI score to at least 19/24. 02/11/22 - Pt scores 18/24. See copy scanned to EMR. STG Duration 2 weeks PROGRESSING Longterm Goal (LTG) Steve will show improved dynamic balance by walking through a cross walk while turning his head to look for traffic without loss of balance. LTG Duration 4 weeks One Impairment Gait Short Term Goal (STG) Steve will ambulate with good step length and arm swing for 1 minute over smooth terrain. 02/11/22 PROGRESSING. Pt is able to maintain step length and arm swing but does lack foot clearance with increased distance STG Duration 2 weeks Collating Machine Operator Goal (LTG) Steve will show improved gait by improving his 6 minute walk test to at least 1,200 feet. 02/11/22 - 1230 feet on 6MWT. 1. 04 m/s. Progress goal to 1.2 m /s on 6MWT. LTG Duration 4 weeks Progress Towards Goals Progress Towards Goals Progressing Toward Goals Progress Comments Updating POC dates to cover last two sessions. Needed due to unplanned days off. Assessment Summary Assessment Steve was able to manage busy crosswalks in traffic today. He could increase his speed and turn his head without LOB. Physical Therapy Plan Frequency and Duration Frequency of Treatment 4x/Week Duration of Treatment 5 weeks Plan of Care Start Date 01/25/22 Plan of Care End Date 03/08/22 Plan of Care Dates Plan of Care Start Date 01/25/22 Plan of Care End Date 03/08/22 Electronically Signed by: Rosanna Ramos, PT 02/24/22 4469 If you are in agreement with this Plan of Care, please return a signed and dated copy. I have reviewed this Plan of Care and certify that the skilled therapy services above are required to meet the patient?s needs. Physician Signature Date Printed Name and Credentials Clinical Instructor Signature Printed Name and Credentials
--- NOTE | 2022-03-02 15:32 | PT.OTN ---
Current Diagnoses Parkinson's disease (03/02/22) Other abnormalities of gait and mobility (03/02/22) History of falling (03/02/22) Physical Therapy Treatment Note PT-OP-A Visit Information Start: 01/23/22 21:26 Freq: Status: Active Protocol: Document 03/02/22 14:20 AW (Rec: 03/02/22 15:31 AW [id number]) Out-Patient Physical Therapy Visit Information Visit Information Visit Type Treatment Note Visit Start Time 14:20 Visit Stop Time 15:15 Total Visit Minutes 55 Visit Number 16 PT-OP-B Current Condition Start: 01/23/22 21:26 Freq: Status: Active Protocol: Document 01/25/22 12:40 AMB (Rec: 01/25/22 13:01 AMB [id number]) Current Condition History of Current Condition Onset Date 1 year Current Complaints PD History of Current Condition Steve presents with Parkinson's for at least one year. His PCP noticed facial masking and then started him on levodopa/ carbidopa and it really helped his walking. He walks 3 miles/day with trekking poles but notes the 3rd mile is really bad with shuffling. Before taking medication he would fall when turning his head while walking and continues to be challenged by this but it is much better than it was. 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 Steve feels like exertion makes his PD symptoms worse as far as the tremor and ability to do fine motor activities. 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 Reports 3 falls in the last 2 months, mostly when on his walks. Wants to maintain his walking as it is very helpful for maintaining his blood sugars. Personal Factors Other Personal Factors That May Effect Peripheral neuropathy of Therapy/Recovery bilateral feet and hands, post concussive syndrome, neck pain, Hx pancreatitits, HepC, colon cancer PT-OP-C Subjective Start: 01/23/22 21:26 Freq: Status: Active Protocol: Document 03/02/22 14:20 AW (Rec: 03/02/22 15:31 AW [id number]) OP-PT Subjective Patient Comments Patient Comments Now taking higher dose of long acting sinemet with good effect - less tremor even in the morning. PT-OP-D Balance Start: 01/23/22 21:26 Freq: Status: Active Protocol: Document 01/25/22 12:40 AMB (Rec: 01/25/22 12:54 AMB [id number]) Balance Tests mCTSIB mCTSIB Position 1 30 seconds but close SBA increased ankle sway mCTSIB Position 2 unsafe- CGA to prevent LOB PT-OP-E Functional Tests Start: 01/23/22 21:26 Freq: Status: Active Protocol: Document 01/25/22 12:40 AMB (Rec: 01/25/22 12:54 AMB [id number]) Functional Tests 6 Minute Walk Test Distance 910 Device Used none Comments reduced arm swing on R, flat foot contact bilat 10 Meter Walk Test Distance 11 seconds Device Used none Dynamic Gait Index (DGI) Score 12 DGI Impairment Rating 40 to <60% Impaired (Score 10- 14) Five Times Sit to Stand Test Score 26 Comments mild use of UEs, standard height chair, poor eccentric control PT-OP-G Mobility & Gait Start: 01/23/22 21:26 Freq: Status: Active Protocol: Document 01/25/22 12:40 AMB (Rec: 01/25/22 12:54 AMB [id number]) OP Gait Assessment Comments Gait Comments Flat foot strike with reduced arm swing bilaterally worst on the right. Falls forward with looking down. Able to turn without significant festination but does have smaller steps with turns. PT-OP-H Neuro Start: 01/23/22 21:26 Freq: Status: Active Protocol: Document 01/25/22 12:40 AMB (Rec: 01/25/22 12:54 AMB [id number]) Sensation Evaluation Comments Summary Comments neuropathy for years, numbness in bilateral feet up to ankles, numbness in hands Coordination Evaluation Lower Extremity Tests Left Foot Tapping Test Moderate Impairment Comments Coordination Comments taps feet well at slow speed, unable to alternate at higher speeds PT-OP-Q Treatments Start: 01/23/22 21:26 Freq: Status: Active Protocol: Document 03/02/22 14:20 AW (Rec: 03/02/22 15:31 AW [id number]) Gym Equipment Sport Cord resisted ambulation Exercise Details resisted amb Cord/Resistance red Comments -fwd, lateral -lateral with step up and over on 4 step Gait Training Gait Activity indoor Device Used none Level of Assistance SBA Surface stairs Comments down 28 steps with unilateral rail SBA outdoor Device Used none Level of Assistance SBA Surface pavement, curbs, grassy hills, parking lot Treatment Focus arm swing/step length, heelstrike Comments - included crosswalks with increase in speed and head turns for functional practice Neuro Re-Education Treatment Balance Activities SLS Details SLS Surface firm Equipment river stones/pods (green, yellow, red) Comments PT calls out laterality and order of tapping. Pt uses specified foot to tap pods in order called as quickly as possible. Steve was able to maintain good single leg balance throughout with controlled cross-body movement . Other Activities sit to stand Details sit to stand Reps/Duration 2x8 reps Comments from 16 block with perturbations at waist/pelvis and river stone/pod under one foot sideways rock and reach Details sideways rock and reach Reps/Duration x10 Comments alternating forward rock and reach Details forward rock and reach Reps/Duration x10 Comments No UE support. Step forward . Step back. backward step Details backward step Reps/Duration x10 Comments No rail support. Alternating on firm surface sideways step Details sideways step Reps/Duration x10 Comments alternating on blue tumbling mat forward step Details forward step Reps/Duration x10 Comments alternating on blue tumbling mat; good reactive balance in response to + LOB anteriorly seated side to side Details seated side to side Reps/Duration x10 Comments on ulises stool; alternating floor to ceiling Details floor to ceiling Reps/Duration 10 Comments on ulises stool PT-OP-T Assessment and Plan Start: 01/23/22 21:26 Freq: Status: Active Protocol: Document 03/02/22 14:20 AW (Rec: 03/02/22 15:31 AW [id number]) Physical Therapy Assessment Assessment Summary Assessment Steve is improving in single leg stance and was able to manage single leg balance drills today with a cognitive component. He had good balance reactions. He is able to cross at crosswalks with a slight increase in speed, good head turns, and good path maintenance.
--- NOTE | 2022-03-04 15:11 | PT.OTN ---
Current Diagnoses Parkinson's disease (03/04/22) Other abnormalities of gait and mobility (03/04/22) History of falling (03/04/22) Physical Therapy Treatment Note PT-OP-A Visit Information Start: 01/23/22 21:26 Freq: Status: Active Protocol: Document 03/04/22 14:15 AW (Rec: 03/04/22 15:11 AW [id number]) Out-Patient Physical Therapy Visit Information Visit Information Visit Type Discharge Summary Visit Start Time 14:18 Visit Stop Time 15:11 Total Visit Minutes 53 Visit Number 17 PT-OP-B Current Condition Start: 01/23/22 21:26 Freq: Status: Active Protocol: Document 01/25/22 12:40 AMB (Rec: 01/25/22 13:01 AMB [id number]) Current Condition History of Current Condition Onset Date 1 year Current Complaints PD History of Current Condition Steve presents with Parkinson's for at least one year. His PCP noticed facial masking and then started him on levodopa/ carbidopa and it really helped his walking. He walks 3 miles/day with trekking poles but notes the 3rd mile is really bad with shuffling. Before taking medication he would fall when turning his head while walking and continues to be challenged by this but it is much better than it was. 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 Steve feels like exertion makes his PD symptoms worse as far as the tremor and ability to do fine motor activities. 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 Reports 3 falls in the last 2 months, mostly when on his walks. Wants to maintain his walking as it is very helpful for maintaining his blood sugars. Personal Factors Other Personal Factors That May Effect Peripheral neuropathy of Therapy/Recovery bilateral feet and hands, post concussive syndrome, neck pain, Hx pancreatitits, HepC, colon cancer PT-OP-C Subjective Start: 01/23/22 21:26 Freq: Status: Active Protocol: Document 03/04/22 14:15 AW (Rec: 03/04/22 15:11 AW [id number]) OP-PT Subjective Patient Comments Patient Comments Already walked today. Noticing more UE tremor. PT-OP-D Balance Start: 01/23/22 21:26 Freq: Status: Active Protocol: Document 01/25/22 12:40 AMB (Rec: 01/25/22 12:54 AMB [id number]) Balance Tests mCTSIB mCTSIB Position 1 30 seconds but close SBA increased ankle sway mCTSIB Position 2 unsafe- CGA to prevent LOB PT-OP-E Functional Tests Start: 01/23/22 21:26 Freq: Status: Active Protocol: Document 01/25/22 12:40 AMB (Rec: 01/25/22 12:54 AMB [id number]) Functional Tests 6 Minute Walk Test Distance 910 Device Used none Comments reduced arm swing on R, flat foot contact bilat 10 Meter Walk Test Distance 11 seconds Device Used none Dynamic Gait Index (DGI) Score 12 DGI Impairment Rating 40 to <60% Impaired (Score 10- 14) Five Times Sit to Stand Test Score 26 Comments mild use of UEs, standard height chair, poor eccentric control PT-OP-G Mobility & Gait Start: 01/23/22 21:26 Freq: Status: Active Protocol: Document 01/25/22 12:40 AMB (Rec: 01/25/22 12:54 AMB [id number]) OP Gait Assessment Comments Gait Comments Flat foot strike with reduced arm swing bilaterally worst on the right. Falls forward with looking down. Able to turn without significant festination but does have smaller steps with turns. PT-OP-H Neuro Start: 01/23/22 21:26 Freq: Status: Active Protocol: Document 01/25/22 12:40 AMB (Rec: 01/25/22 12:54 AMB [id number]) Sensation Evaluation Comments Summary Comments neuropathy for years, numbness in bilateral feet up to ankles, numbness in hands Coordination Evaluation Lower Extremity Tests Left Foot Tapping Test Moderate Impairment Comments Coordination Comments taps feet well at slow speed, unable to alternate at higher speeds PT-OP-Q Treatments Start: 01/23/22 21:26 Freq: Status: Active Protocol: Document 03/04/22 14:15 AW (Rec: 03/04/22 15:11 AW [id number]) Gym Equipment Sport Cord resisted ambulation Exercise Details resisted amb Cord/Resistance red Comments -fwd, lateral -lateral with step up and over on 4 step Gait Training Gait Activity outdoor Device Used none Level of Assistance SBA Surface pavement, curbs, grassy hills, parking lot Treatment Focus arm swing/step length, heelstrike Comments - included crosswalks with increase in speed and head turns for functional practice Neuro Re-Education Treatment Balance Activities SLS Details SLS Surface foam Equipment river stones/pods (green, yellow, red) Comments PT calls out laterality and order of tapping. Pt uses specified foot to tap pods in order called as quickly as possible. Steve was able to maintain good single leg balance throughout with controlled cross-body movement . Coordination Activities grapevine Details grapevine Equipment rail prn Speed not assessed Comments Mod cues for sequencing. Occ CGA for balance Other Activities sit to stand Details sit to stand Reps/Duration 2x8 reps Comments from 16 block with perturbations at waist/pelvis and river stone/pod under one foot sideways rock and reach Details sideways rock and reach Reps/Duration x10 Comments alternating forward rock and reach Details forward rock and reach Reps/Duration x10 Comments No UE support. Firm surface Step forward. Step back. backward step Details backward step Reps/Duration x10 Comments Alternating on blue tumbling mat sideways step Details sideways step Reps/Duration x10 Comments alternating on blue tumbling mat forward step Details forward step Reps/Duration x10 Comments alternating on blue tumbling mat; good reactive balance in response to + LOB anteriorly seated side to side Details seated side to side Reps/Duration x10 Comments on ulises stool; alternating floor to ceiling Details floor to ceiling Reps/Duration 10 Comments on ulises stool Self-Care/Home Management Treatment Education Other Education Counseled pt to continue once daily with BIG exercises and regular walking program. Discussed possible benefit of weighted utensils for improved control with eating. PT-OP-T Assessment and Plan Start: 01/23/22 21:26 Freq: Status: Active Protocol: Document 03/04/22 14:15 AW (Rec: 03/04/22 15:11 AW [id number]) Physical Therapy Assessment Goals Three Impairment Transfers Short Term Goal (STG) Steve will improve his 5x sit to stand to less than 20 seconds . 02/11/22 - 8.5 seconds with poor control. 9.9 seconds with good control STG Duration 2 weeks GOAL MET Two Impairment Balance Short Term Goal (STG) Steve will show improved dynamic balance by increasing his DGI score to at least 19/24. 02/11/22 - Pt scores 18/24. See copy scanned to EMR. STG Duration 2 weeks PROGRESSING Correction Goal (LTG) Steve will show improved dynamic balance by walking through a cross walk while turning his head to look for traffic without loss of balance. 03/04/22 Improved functional walking through crosswalks during therapy and on his own, per pt report. PT observes no marked path deviation during trials. LTG Duration 4 weeks One Impairment Gait Short Term Goal (STG) Steve will ambulate with good step length and arm swing for 1 minute over smooth terrain. 02/11/22 PROGRESSING. 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 02/11/22 - 1230 feet on 6MWT. 1. 04 m/s. Progress goal to 1.2 m /s on 6MWT. 03/04/22 Not assessed LTG Duration 4 weeks Assessment Summary Assessment Steve has met his PT goals and notes his and others have commented on his improved walking. He has improved balance and gait with cognitive load. Discussed potential return for therapy check up in 6-9 months and pt was agreeable. Physical Therapy Plan Discharge Physical Therapy Discharge Reasons Goals Met Discharge Comments Steve improved his dynamic balance, gait speed, and overall amplitude of movement during the course of LSVT BIG treatment. He has good understanding of Parkinson's impairments and complications of neuropathy. He has tools to manage his hypokinesia and bradykinesia and will continue with daily BIG exercises. Plan to follow up in 6-9 months.
== END 2022-03-08 15:04 | disposition home or self-care (01) ==
LOC: PHYS 14:15
PROVIDERS: Family Provider Family Medicine; PCP Family Medicine; Referring Provider Psychiatry & Neurology Neurology; Visit Provider Psychiatry & Neurology Neurology
DX: G20 Parkinson's disease (principal); R26.89 Other abnormalities of gait and mobility; Z91.81 History of falling
CPT/HCPCS: 95992; 97112; 97116; 97162; 97535